=== PATIENT | male | born 1925 | race Caucasian/White ===

== ENCOUNTER 2017-08-05 11:52 | Emergency (ER) | payer OTHER, MEDICARE ==
[~2017-08-05] VITALS: Ht 165.1 cm; Wt 107.5 kg
[~2017-08-05 11:52] MED LIST: ALBU6.7H INH; CALC600T5 PO; DILT240C PO; FERR1TAB36 PO; FOSI20TA PO; GLIP5TAB8 PO; HYDR-3583 PO; METF500T PO; MULT-135 PO; OMEG100010 PO; OXYB10TA PO; OXYGENTANK NAS.CANULA; SIMV20TA PO; VITA10007 PO
[2017-08-05 12:19] VITALS: BP 145/63; PULSE 90; RESP 19; TEMP 97.9; O2SAT 95
[2017-08-05 12:25] VITALS: BP 145/63; PULSE 93; RESP 19; TEMP 97.9; O2SAT 96
[2017-08-05] MEDS ORDERED: FISH1000 PO (12:36)
[2017-08-05] MEDS ORDERED: ALBU.5I NEB (12:37)
--- NOTE | 2017-08-05 12:49 | PD ---
HPI Chief Complaint: Fall Time Seen by Provider: 12:49 Travel History International Travel<30 days: No Contact w/Intl Traveler<30days: No Traveled to known affect area: No PFSH Past Medical History Cancer: Yes (PROSTATE AND SKIN) Cardiovascular Problems: Yes Diabetes: Yes Patient Takes Glucophage: Yes Endocrine: Yes Gastrointestinal Disorders: Yes (HX OF BLEEDING ULCERS) Genitourinary: Yes (HX OF PROSTATE CA(TREATED WITH RADIOACTIVE SEEDS), urgency) Hepatitis: No Hiatal Hernia: No Hypertension: Yes (on medications) Immune Disorder: No Medical other: Yes (ELEVATED CHOLESTEROL, skin CA) Musculoskeletal: Yes (ARTHRITIS knees, L sciatic (past), carpal tunnel bilat hands) Neurologic: No Psychiatric: No Reproductive: No Respiratory: Yes Thyroid Disease: No Tetanus Vaccination: < 5 Years Influenza Vaccination: Yes Past Surgical History Abdominal Surgery: No AICD: No Cardiac Surgery: No Ear Surgery: No Endocrine Surgery: No Eye Surgery: Yes (previous right cataract ) Genitourinary Surgery: Yes (SEED IMPLANTS FOR PROSTATE CA) Joint Replacement: No Oral Surgery: Yes (TONSILLECTOMY) Pacemaker: No Thoracic Surgery: No Other Surgery: Yes Social History Alcohol Use: Yes (OCC) Tobacco Use: No Substance Use: No Allergies-Medications (Allergen,Severity, Reaction): Coded Allergies: No Known Allergies (Unverified Adverse Reaction, Unknown, 08/05/17) Reported Meds & Prescriptions Reported Meds & Active Scripts Active Macrobid (Nitrofurantoin Monohydrate Macrocrystals) 100 Mg Capsule 100 Mg PO BID 7 Days Reported Albuterol Neb (Albuterol Sulfate) 2.5 Mg/0.5 Ml Neb 2.5 Mg NEB Q6HR NEB Note: The Albuterol Sulfate Inhalation Solution is concentrated and must be diluted. Read complete instructions carefully before using. Fish Oil ([place]-3 Fatty Acids) 340 Mg-1,000 Mg Cap 1 Cap PO BID Oxygen tank (Oxygen) 1 Ea Tank 2 Liter KAMAR.CANULA HS PRN Oxygen Concentrator Portable Gaseous 2 L/min via Nasal Cannula Continuous For 99 months Simvastatin 20 Mg Tab 20 Mg PO HS [place] 3 1000 mg ([place]-3 Fatty Acids) 1 Cap Cap 1,000 Mg PO HS Metformin (Metformin HCl) 500 Mg Tab 500 Mg PO BID With meals Oxybutynin ER 24 HR (Oxybutynin Chloride) 10 Mg Tab 10 Mg PO HS Hydrocodone-Acetaminophen 10-325 mg Tab 1 Tab PO BID PRN Glipizide 5 Mg Tab 2.5 Mg PO BID Take 30 minutes before a meal Fosinopril (Fosinopril Sodium) 20 Mg Tab 20 Mg PO DAILY Diltiazem HCl ER (Diltiazem HCl Coated Beads) 240 Mg Cap 240 Mg PO DAILY Calcium (Calcium Carbonate) 600 Mg Tab 600 Mg PO DAILY Proventil Hfa 6.7 GM Inh (Albuterol Sulfate) 90 Mcg/Act Aer 2 Puff INH Q4-6H PRN Data Data Last Documented VS Vital Signs Date Time Temp Pulse Resp B/P (MAP) Pulse Ox O2 Delivery O2 Flow Rate FiO2 08/05/17 14:31 97 Room Air 08/05/17 14:31 08/05/17 12:25 97.9 93 19 Orders Orders Electrocardiogram (08/05/17 12:15) Complete Blood Count With Diff (08/05/17 14:24) Comprehensive Metabolic Panel (08/05/17 14:24) B-Type Natriuretic Peptide (08/05/17 14:24) Act Partial Throm Time (Ptt) (08/05/17 14:24) Prothrombin Time / Inr (Pt) (08/05/17 14:24) Ckmb (Isoenzyme) Profile (08/05/17 14:24) Troponin I (08/05/17 14:24) Urinalysis - C+S If Indicated (08/05/17 14:24) Iv Access Insert/Monitor (08/05/17 14:24) Ecg Monitoring (08/05/17 14:24) Oximetry (08/05/17 14:24) Oxygen Administration (08/05/17 14:24) Chest, Single Ap (08/05/17 14:24) Sodium Chloride 0.9% Flush (Ns Flush) (08/05/17 14:30) Elbow, Complete (4 Vws) (08/05/17 14:27) Urine Culture (08/05/17 14:00) CKMB (08/05/17 14:00) CKMB% (08/05/17 14:00) Ceftriaxone Inj (Rocephin Inj) (08/05/17 15:45) Ed Discharge Order (08/05/17 16:13) Labs Laboratory Tests Test 08/05/17 14:00 White Blood Count 12.7 TH/MM3 Red Blood Count 3.63 MIL/MM3 Hemoglobin 10.5 GM/DL Hematocrit 31.8 % Mean Corpuscular Volume 87.8 FL Mean Corpuscular Hemoglobin 28.9 PG Mean Corpuscular Hemoglobin Concent 33.0 % Red Cell Distribution Width 14.9 % Platelet Count 320 TH/MM3 Mean Platelet Volume 7.5 FL Neutrophils (%) (Auto) 67.2 % Lymphocytes (%) (Auto) 23.0 % Monocytes (%) (Auto) 9.3 % Eosinophils (%) (Auto) 0.3 % Basophils (%) (Auto) 0.2 % Neutrophils # (Auto) 8.5 TH/MM3 Lymphocytes # (Auto) 2.9 TH/MM3 Monocytes # (Auto) 1.2 TH/MM3 Eosinophils # (Auto) 0.0 TH/MM3 Basophils # (Auto) 0.0 TH/MM3 CBC Comment DIFF FINAL Differential Comment Prothrombin Time 10.3 SEC Prothromb Time International Ratio 1.0 RATIO Activated Partial Thromboplast Time 25.4 SEC Urine Color LIGHT-YELLOW Urine Turbidity HAZY Urine pH 6.5 Urine Specific [place] 1.010 Urine Protein 30 mg/dL Urine Glucose (UA) NEG mg/dL Urine Ketones NEG mg/dL Urine Occult Blood SMALL Urine Nitrite NEG Urine Bilirubin NEG Urine Urobilinogen LESS THAN 2.0 MG/DL Urine Leukocyte Esterase LARGE Urine RBC 8 /hpf Urine WBC 164 /hpf Urine Bacteria FEW /hpf Urine Mucus FEW /lpf Microscopic Urinalysis Comment CULTURE INDICATED Blood Urea Nitrogen 31 MG/DL Creatinine 1.16 MG/DL Random Glucose 163 MG/DL Total Protein 7.2 GM/DL Albumin 3.1 GM/DL Calcium Level 8.8 MG/DL Alkaline Phosphatase 86 U/L Aspartate Amino Transf (AST/SGOT) 40 U/L Alanine Aminotransferase (ALT/SGPT) 17 U/L Total Bilirubin 0.4 MG/DL Sodium Level 138 MEQ/L Potassium Level 4.8 MEQ/L Chloride Level 104 MEQ/L Carbon Dioxide Level 27.4 MEQ/L Anion Gap 7 MEQ/L Estimat Glomerular Filtration Rate 59 ML/MIN Total Creatine Kinase 341 U/L Creatine Kinase MB 4.0 NG/ML Creatine Kinase MB % 1.2 % Troponin I LESS THAN 0.02 NG/ML B-Type Natriuretic Peptide 26 PG/ML MDM Scripts Nitrofurantoin Monohydrate Macrocrystals (Macrobid) 100 Mg Capsule 100 MG PO BID for Infection for 7 Days, #14 CAP 0 Refills Prov: Hien Simon MD 08/05/17 Hien Simon MD Aug 05, 2017 12:49
--- NOTE | 2017-08-05 14:27 | PD ---
HPI Chief Complaint: Fall Time Seen by Provider: 14:07 Travel History International Travel<30 days: No Contact w/Intl Traveler<30days: No Traveled to known affect area: No History of Present Illness HPI 89-year-old male with PMH of DM, neuropathy, HTN, asbestosis, GI bleed, prostate CA presents to the ED via EMS after 2 mechanical falls at home today. The first fall occurred this morning as he was transferring from wheelchair to the walker. States that he lost his balance and fell to the carpeted floor, landing on his left elbow. He states that the fire department came to the house and helped him get off the floor. He states that after breakfast he was getting into the shower, became short of breath, lost his balance and fell to the tile floor. He denies hitting his head or loss of consciousness with either fall. He states that he has noticed increasing weakness, especially dyspnea on exertion. On presentation he denies headaches, dizziness, neck pain , back pain, fever, chills, chest pain, palpitations, abdominal pain, nausea, vomiting. He endorses a bowel movement every few days. Denies melena, hematochezia. Endorses urinary incontinence. Denies dysuria, hematuria. He endorses chronic shoulder pain, denies any musculoskeletal pain of the extremities. He treats his shortness of breath at home with nebulizers and O2 as needed. He is followed by the [facility] Past Medical History Cancer: Yes (PROSTATE AND SKIN) Cardiovascular Problems: Yes Diabetes: Yes Patient Takes Glucophage: Yes Endocrine: Yes Gastrointestinal Disorders: Yes (HX OF BLEEDING ULCERS) Genitourinary: Yes (HX OF PROSTATE CA(TREATED WITH RADIOACTIVE SEEDS), urgency) Hepatitis: No Hiatal Hernia: No Hypertension: Yes (on medications) Immune Disorder: No Medical other: Yes (ELEVATED CHOLESTEROL, skin CA) Musculoskeletal: Yes (ARTHRITIS knees, L sciatic (past), carpal tunnel bilat hands) Neurologic: No Psychiatric: No Reproductive: No Respiratory: Yes Thyroid Disease: No Tetanus Vaccination: < 5 Years Influenza Vaccination: Yes Past Surgical History Abdominal Surgery: No AICD: No Cardiac Surgery: No Ear Surgery: No Endocrine Surgery: No Eye Surgery: Yes (previous right cataract ) Genitourinary Surgery: Yes (SEED IMPLANTS FOR PROSTATE CA) Joint Replacement: No Oral Surgery: Yes (TONSILLECTOMY) Pacemaker: No Thoracic Surgery: No Other Surgery: Yes Social History Alcohol Use: Yes (OCC) Tobacco Use: No Substance Use: No Allergies-Medications (Allergen,Severity, Reaction): Coded Allergies: No Known Allergies (Unverified Adverse Reaction, Unknown, 08/05/17) Reported Meds & Prescriptions Reported Meds & Active Scripts Active Macrobid (Nitrofurantoin Monohydrate Macrocrystals) 100 Mg Capsule 100 Mg PO BID 7 Days Reported Albuterol Neb (Albuterol Sulfate) 2.5 Mg/0.5 Ml Neb 2.5 Mg NEB Q6HR NEB Note: The Albuterol Sulfate Inhalation Solution is concentrated and must be diluted. Read complete instructions carefully before using. Fish Oil ([place]-3 Fatty Acids) 340 Mg-1,000 Mg Cap 1 Cap PO BID Oxygen tank (Oxygen) 1 Ea Tank 2 Liter KAMAR.CANULA HS PRN Oxygen Concentrator Portable Gaseous 2 L/min via Nasal Cannula Continuous For 99 months Simvastatin 20 Mg Tab 20 Mg PO HS [place] 3 1000 mg ([place]-3 Fatty Acids) 1 Cap Cap 1,000 Mg PO HS Metformin (Metformin HCl) 500 Mg Tab 500 Mg PO BID With meals Oxybutynin ER 24 HR (Oxybutynin Chloride) 10 Mg Tab 10 Mg PO HS Hydrocodone-Acetaminophen 10-325 mg Tab 1 Tab PO BID PRN Glipizide 5 Mg Tab 2.5 Mg PO BID Take 30 minutes before a meal Fosinopril (Fosinopril Sodium) 20 Mg Tab 20 Mg PO DAILY Diltiazem HCl ER (Diltiazem HCl Coated Beads) 240 Mg Cap 240 Mg PO DAILY Calcium (Calcium Carbonate) 600 Mg Tab 600 Mg PO DAILY Proventil Hfa 6.7 GM Inh (Albuterol Sulfate) 90 Mcg/Act Aer 2 Puff INH Q4-6H PRN Review of Systems Except as stated in HPI: all other systems reviewed are Neg Physical Exam Narrative GENERAL: Well-nourished, well-developed white male in no acute distress. Sitting up in the stretcher. SKIN: Warm and dry. Thorough evaluation reveals no edema, ecchymosis, abrasion , or laceration of the skin. HEAD: Normocephalic. Atraumatic. No raccoon eyes or norwood sign. No tenderness to palpation of the skull. No bony step-offs. No malocclusion of the teeth. EYES: No scleral icterus. No injection or drainage. PERRLA. EOMI. ENT: Hearing aid in place in the right external ear canal. Nasal mucosa is moist. Oropharynx without erythema, edema or exudate. NECK: Supple, trachea midline. No JVD or lymphadenopathy. No midline tenderness to palpation. Patient retains full, active, painless range of motion of the neck. CARDIOVASCULAR: Regular rate and rhythm without murmurs, gallops, or rubs. 2+ DP and radial pulses bilaterally. RESPIRATORY: Breath sounds clear and equal bilaterally. No accessory muscle use. GASTROINTESTINAL: Abdomen soft, non-tender, nondistended. + Bowel sounds MUSCULOSKELETAL: No cyanosis. 1+ edema to the midshin bilaterally. Tender to palpation of the radial head, worsened with pronation and supination. No other tenderness to palpation or limitations to range of motion of the joints of the upper and lower extremities bilaterally. NEUROLOGICAL: Awake and alert. Cranial nerves II through XII intact. Motor and sensory grossly within normal limits. 5/5 muscle strength in all muscle groups. Normal speech. BACK: Nontender without obvious deformity. No CVA tenderness. No midline tenderness. Data Data Last Documented VS Vital Signs Date Time Temp Pulse Resp B/P (MAP) Pulse Ox O2 Delivery O2 Flow Rate FiO2 08/05/17 14:31 97 Room Air 08/05/17 14:31 08/05/17 12:25 97.9 93 19 Orders Orders Electrocardiogram (08/05/17 12:15) Complete Blood Count With Diff (08/05/17 14:24) Comprehensive Metabolic Panel (08/05/17 14:24) B-Type Natriuretic Peptide (08/05/17 14:24) Act Partial Throm Time (Ptt) (08/05/17 14:24) Prothrombin Time / Inr (Pt) (08/05/17 14:24) Ckmb (Isoenzyme) Profile (08/05/17 14:24) Troponin I (08/05/17 14:24) Urinalysis - C+S If Indicated (08/05/17 14:24) Iv Access Insert/Monitor (08/05/17 14:24) Ecg Monitoring (08/05/17 14:24) Oximetry (08/05/17 14:24) Oxygen Administration (08/05/17 14:24) Chest, Single Ap (08/05/17 14:24) Sodium Chloride 0.9% Flush (Ns Flush) (08/05/17 14:30) Elbow, Complete (4 Vws) (08/05/17 14:27) Urine Culture (08/05/17 14:00) CKMB (08/05/17 14:00) CKMB% (08/05/17 14:00) Ceftriaxone Inj (Rocephin Inj) (08/05/17 15:45) Ed Discharge Order (08/05/17 16:13) Labs Laboratory Tests Test 08/05/17 14:00 White Blood Count 12.7 TH/MM3 Red Blood Count 3.63 MIL/MM3 Hemoglobin 10.5 GM/DL Hematocrit 31.8 % Mean Corpuscular Volume 87.8 FL Mean Corpuscular Hemoglobin 28.9 PG Mean Corpuscular Hemoglobin Concent 33.0 % Red Cell Distribution Width 14.9 % Platelet Count 320 TH/MM3 Mean Platelet Volume 7.5 FL Neutrophils (%) (Auto) 67.2 % Lymphocytes (%) (Auto) 23.0 % Monocytes (%) (Auto) 9.3 % Eosinophils (%) (Auto) 0.3 % Basophils (%) (Auto) 0.2 % Neutrophils # (Auto) 8.5 TH/MM3 Lymphocytes # (Auto) 2.9 TH/MM3 Monocytes # (Auto) 1.2 TH/MM3 Eosinophils # (Auto) 0.0 TH/MM3 Basophils # (Auto) 0.0 TH/MM3 CBC Comment DIFF FINAL Differential Comment Prothrombin Time 10.3 SEC Prothromb Time International Ratio 1.0 RATIO Activated Partial Thromboplast Time 25.4 SEC Urine Color LIGHT-YELLOW Urine Turbidity HAZY Urine pH 6.5 Urine Specific [place] 1.010 Urine Protein 30 mg/dL Urine Glucose (UA) NEG mg/dL Urine Ketones NEG mg/dL Urine Occult Blood SMALL Urine Nitrite NEG Urine Bilirubin NEG Urine Urobilinogen LESS THAN 2.0 MG/DL Urine Leukocyte Esterase LARGE Urine RBC 8 /hpf Urine WBC 164 /hpf Urine Bacteria FEW /hpf Urine Mucus FEW /lpf Microscopic Urinalysis Comment CULTURE INDICATED Blood Urea Nitrogen 31 MG/DL Creatinine 1.16 MG/DL Random Glucose 163 MG/DL Total Protein 7.2 GM/DL Albumin 3.1 GM/DL Calcium Level 8.8 MG/DL Alkaline Phosphatase 86 U/L Aspartate Amino Transf (AST/SGOT) 40 U/L Alanine Aminotransferase (ALT/SGPT) 17 U/L Total Bilirubin 0.4 MG/DL Sodium Level 138 MEQ/L Potassium Level 4.8 MEQ/L Chloride Level 104 MEQ/L Carbon Dioxide Level 27.4 MEQ/L Anion Gap 7 MEQ/L Estimat Glomerular Filtration Rate 59 ML/MIN Total Creatine Kinase 341 U/L Creatine Kinase MB 4.0 NG/ML Creatine Kinase MB % 1.2 % Troponin I LESS THAN 0.02 NG/ML B-Type Natriuretic Peptide 26 PG/ML [facility] Medical Decision Making Medical Screen Exam Complete: Yes Emergency Medical Condition: Yes Differential Diagnosis CHF exacerbation versus anemia versus mechanical fall versus metabolic derangement versus other Narrative Course 89-year-old male with PMH of DM, neuropathy, HTN, asbestosis, GI bleed, prostate CA presents to the ED via EMS after 2 mechanical falls at home today. He was getting into the shower, became short of breath, lost his balance and fell to the tile floor. He denies hitting his head or LOC with either fall. He states that he has noticed increasing weakness, especially dyspnea on exertion. Denies melena, hematochezia. Endorses urinary incontinence. Denies dysuria, hematuria. He treats his shortness of breath at home with nebulizers and O2 as needed. [facility] Patient is afebrile and hypertensive on presentation. Physical exam reveals a pleasant, alert white male in no acute distress. He has some tenderness to palpation of the left elbow but the exam is otherwise unremarkable. Given the reported shortness of breath workup was initiated. EKG: Heart rate 96, sinus rhythm with sinus arrhythmia. AR interval 149, QRS 114, QTC 400. Borderline LAD. Incomplete RBBB. No acute ST changes. Reviewed by Dr. Simon. CXR: Nodule foci bilaterally could be calcified pleural plaques which could be seen with asbestosis exposure. Slight elevation of left hemidiaphragm. Cardiac enzymes negative 1 WBC 12.7. Hemoglobin 10.5. INR 1.0 BUN 31, creatinine 1.16. BNP 26 UA hazy, small occult blood, large leukocyte esterase, 164 WBCs, few bacteria, few mucus. Culture indicated. Left elbow x-ray: Soft tissue swelling without fracture. Patient was administered a gram of Rocephin IV. I discussed the results of the workup. He reports chronic anemia and intermittent B12 injections. Last colonoscopy greater than 10 years ago. He is discharged with 7 day course of Macrobid twice daily. He is instructed to call the [place] tomorrow for outpatient follow-up with the community planner. We discussed reasons to return to the ED. The patient and his family indicated understanding of the discharge instructions are agreeable to the care plan. The patient is stable and discharged home. HemaPrompt Point of Care Internal Pos. & Neg. Controls: Passed Fecal Specimen Occult Blood: Positive (Weakly positive) Diagnosis Primary Impression: Urinary tract infection Qualified Codes: N39.0 - Urinary tract infection, site not specified Additional Impression: Fall from standing Qualified Codes: W19.XXXA - Unspecified fall, initial encounter Referrals: [facility] [place] Patient Instructions: General Instructions, Urinary Traction Infection in Older Adults (ED) Additional Instructions: Rest, hydrate. Take every antibiotic pill until they are all gone. Follow-up with the [place] clinic and community planner this week as discussed. Return to the ED for any urgent or emergent medical condition. Med/Other Pt SpecificInfo: Prescription(s) given Scripts Nitrofurantoin Monohydrate Macrocrystals (Macrobid) 100 Mg Capsule 100 MG PO BID for Infection for 7 Days, #14 CAP 0 Refills Prov: Hien Simon MD 08/05/17 Disposition: 01 DISCHARGE HOME Condition: Stable Tracey Morgan Aug 05, 2017 14:27
[2017-08-05] MEDS ORDERED: SODIUM CHLORIDE 0.9% FLUSH 10 ML FLUSH IVF PRN (14:30)
[2017-08-05 14:31] VITALS: O2SAT 97
--- NOTE | 2017-08-05 14:59 | RADRPT ---
EXAM DATE/TIME: 08/05/2017 14:38 [facility] COMPARISON: No previous studies available for comparison. INDICATIONS : Fell. MEDICAL HISTORY : none known SURGICAL HISTORY : none known ENCOUNTER: Initial ACUITY: 1 day PAIN SCORE: 0/10 LOCATION: Bilateral chest FINDINGS: A single view of the chest demonstrates bilateral nodular foci could be calcified plaques. Slight mina vation left hemidiaphragm. No consolidation. The cardiomediastinal contours are unremarkable. Osseou s structures are intact. CONCLUSION: 1. Nodular foci bilaterally could be calcified pleural plaques which can be seen with asbestosis expo sure. 2. Slight elevation left hemidiaphragm. Mg Morris MD on August 05, 2017 at 14:55 Board Certified Radiologist. This report was verified electronically.
--- NOTE | 2017-08-05 15:00 | RADRPT ---
EXAM DATE/TIME: 08/05/2017 14:42 [facility] COMPARISON: No previous studies available for comparison. INDICATIONS : Fell. MEDICAL HISTORY : None. SURGICAL HISTORY : None. ENCOUNTER: Initial ACUITY: 1 day PAIN SCORE: 8/10 LOCATION: Left elbow FINDINGS: Multiple view examination of the left elbow demonstrates no soft tissue swelling, joint effusion, or fracture. The osseous structures are in normal alignment. Bony mineralization is under mineralized. Vascular calcifications. CONCLUSION: Soft tissue swelling without fracture. Mg Morris MD on August 05, 2017 at 14:56 Board Certified Radiologist. This report was verified electronically.
[2017-08-05 15:05] LABS: AUTOMATED NEUTROPHIL # 8.5 TH/MM3 (1.8-7.7); BASOPHIL % 0.2 % (0.0-2.0); EOSINOPHIL % 0.3 % (0.0-4.0); HEMATOCRIT 31.8 % (39.0-51.0); HEMOGLOBIN 10.5 GM/DL (13.0-17.0); LYMPHOCYTE # 2.9 TH/MM3 (1.0-4.8); MEAN CELL VOLUME 87.8 FL (80.0-100.0); MEAN CORPUSCULAR HEMOGLOBIN 28.9 PG (27.0-34.0); MEAN PLATELET VOLUME 7.5 FL (7.0-11.0); MONO % 9.3 % (0.0-8.0); MONOCYTE # 1.2 TH/MM3 (0-0.9); NEUT % 67.2 % (16.0-70.0); PLATELET COUNT 320 TH/MM3 (150-450); RED BLOOD COUNT 3.63 MIL/MM3 (4.50-5.90); RED CELL DISTRIBUTION WIDTH 14.9 % (11.6-17.2); WHITE BLOOD COUNT 12.7 TH/MM3 (4.0-11.0)
--- NOTE | 2017-08-05 15:12 | EKG ---
Date Performed: 08/05/2017 Time Performed: 12:15:11 PTAGE: 89 years EKG: Sinus rhythm WITH SINUS ARRHYTHMIA BORDERLINE LEFT AXIS DEVIATION Nonspecific intraventricular conduction delay N ONSPECIFIC T-WAVE ABNORMALITY BORDERLINE ECG Compared to prior electrocardiogram, Nonspecific intrave ntricular conduction delay is now present DOCTOR: Abdulaziz Soliman Interpretating Date/Time 08/05/2017 15:11:33
[2017-08-05 15:15] LABS: BACTERIA, URINE FEW /hpf; BILIRUBIN, URINE NEG (NEG); BLOOD, URINE SMALL (NEG); GLUCOSE,URINE NEG (NEG); KETONE, URINE NEG (NEG); MUCUS URINE FEW /lpf (OCC); NITRITE,URINE NEG (NEG); PH, URINE 6.5 (5.0-8.5); URINE COLOR LIGHT-YELLOW (YELLW/STRAW); URINE LEUKOCYTE ESTERASE LARGE (NEG)
[2017-08-05 15:33] LABS: PROTHROMBIN TIME - PATIENT 10.3 SEC (9.8-11.6)
[2017-08-05 15:34] LABS: ALBUMIN 3.1 GM/DL (3.4-5.0); ALKALINE PHOSPHATASE 86 U/L (45-117); ALT (GPT) 17 U/L (12-78); AST (GOT) 40 U/L (15-37); BICARBONATE 27.4 MEQ/L (21.0-32.0); BLOOD UREA NITROGEN 31 MG/DL (7-18); CALCIUM 8.8 MG/DL (8.5-10.1); CHLORIDE 104 MEQ/L (98-107); CREATININE 1.16 MG/DL (0.60-1.30); GLOMERULAR FILTRATION RATE 59 ML/MIN (>89); GLUCOSE,RANDOM 163 MG/DL (74-106); SODIUM (NA) 138 MEQ/L (136-145); TOTAL BILIRUBIN ADULT 0.4 MG/DL (0.2-1.0); TOTAL PROTEIN 7.2 GM/DL (6.4-8.2); TROPONIN I LESS THAN 0.02 NG/ML (0.02-0.05)
[2017-08-05] MEDS ORDERED: cefTRIAXone INJ 1,000 MG in SODIUM CHLORIDE 0.9% INJ 100 ML IV ONE (15:45)
[2017-08-05] MEDS ORDERED: MACR100C2 PO (16:15)
== END 2017-08-05 18:35 | disposition home or self-care (01) ==
LOC: NEPE 11:52
DX: N39.0 Urinary tract infection, site not specified (principal); R06.02 Shortness of breath; E11.40 Type 2 diabetes mellitus with diabetic neuropathy, unspecified; I10 Essential (primary) hypertension; R94.31 Abnormal electrocardiogram [ECG] [EKG]; G89.29 Other chronic pain; M25.519 Pain in unspecified shoulder; B96.89 Other specified bacterial agents as the cause of diseases classified elsewhere; W05.0XXA Fall from non-moving wheelchair, initial encounter; W01.0XXA Fall on same level from slipping, tripping and stumbling without subsequent striking against object, initial encounter; Y92.002 Bathroom of unspecified non-institutional (private) residence as the place of occurrence of the external cause; R32 Unspecified urinary incontinence
CPT/HCPCS: 71045; 73080; 80053; 81001; 82550; 82552; 83880; 84484; 85025; 85610; 85730; 87077; 87086; 87186; 93005; 96374; 99285; J0696

== ENCOUNTER 2017-08-18 12:02 | Inpatient (IN) | payer MEDICARE, OTHER ==
[~2017-08-18] VITALS: Ht 165.1 cm; Wt 103.7 kg
[2017-08-18] VITALS (7 sets, daily range): BP systolic 113–174; BP diastolic 53–74; PULSE 72–78; RESP 18–24; TEMP 97.9–98.2; O2SAT 95–97
[~2017-08-18 12:02] MED LIST changes: +ALBU.5I NEB; -FERR1TAB36 PO; +FISH1000 PO; +MACR100C2 PO; -MULT-135 PO; -VITA10007 PO
[2017-08-18 12:50] LABS: BACTERIA, URINE OCC /hpf; BILIRUBIN, URINE NEG (NEG); BLOOD, URINE NEG (NEG); GLUCOSE,URINE NEG (NEG); KETONE, URINE NEG (NEG); MUCUS URINE FEW /lpf (OCC); NITRITE,URINE NEG (NEG); RENAL EPITHELIAL CELLS 1 /hpf; SQUAMOUS EPITHELIAL CELL URINE 1 /hpf (0-5); URINE COLOR YELLOW (YELLW/STRAW); URINE LEUKOCYTE ESTERASE LARGE (NEG); WHITE BLOOD CELL CLUMPS RARE
--- NOTE | 2017-08-18 13:00 | PD ---
HPI Chief Complaint: General Weakness Time Seen by Provider: 12:49 Travel History International Travel<30 days: No Contact w/Intl Traveler<30days: No Traveled to known affect area: No History of Present Illness HPI The patient is a 89-year-old male who presents to the emergency department for generalized weakness and inability to ambulate. The patient was recently hospitalized for UTI, declined custodial facility placement and subsequently went home. However, the patient lives with his girlfriend who is in her 90s, she is ambulatory, but unable to assist the patient. The patient is unable to get up out of the recliner to the bathroom to urinate. He notes increasing swelling to lower extremities, increased lethargy, now states he may need custodial facility placement. The patient apparently called his primary physician, Dr. Alvarez gotti, who referred the patient to the emergency department for admission and subsequent placement in a custodial facility. The patient denies any chest pain or shortness of breath. He does complain of generalized weakness and lower extremity edema. Symptoms are moderate. PFSH Past Medical History Cancer: Yes (PROSTATE AND SKIN) Cardiovascular Problems: Yes Diabetes: Yes Endocrine: Yes Gastrointestinal Disorders: Yes (HX OF BLEEDING ULCERS) Genitourinary: Yes (HX OF PROSTATE CA(TREATED WITH RADIOACTIVE SEEDS), urgency) Hepatitis: No Hiatal Hernia: No Hypertension: Yes (on medications) Immune Disorder: No Musculoskeletal: Yes (ARTHRITIS knees, L sciatic (past), carpal tunnel bilat hands) Neurologic: No Psychiatric: No Reproductive: No Respiratory: Yes Thyroid Disease: No Past Surgical History Abdominal Surgery: No AICD: No Cardiac Surgery: No Ear Surgery: No Endocrine Surgery: No Eye Surgery: Yes (previous right cataract ) Genitourinary Surgery: Yes (SEED IMPLANTS FOR PROSTATE CA) Joint Replacement: No Oral Surgery: Yes (TONSILLECTOMY) Pacemaker: No Thoracic Surgery: No Other Surgery: Yes Social History Alcohol Use: Yes (OCC) Tobacco Use: No Substance Use: No Allergies-Medications (Allergen,Severity, Reaction): Coded Allergies: No Known Allergies (Unverified Adverse Reaction, Unknown, 08/18/17) Reported Meds & Prescriptions Reported Meds & Active Scripts Active Reported Furosemide 40 Mg Tab 40 Mg PO DAILY Albuterol Neb (Albuterol Sulfate) 2.5 Mg/0.5 Ml Neb 2.5 Mg NEB Q6HR NEB Note: The Albuterol Sulfate Inhalation Solution is concentrated and must be diluted. Read complete instructions carefully before using. Oxygen tank (Oxygen) 1 Ea Tank 2 Liter KAMAR.CANULA HS PRN Oxygen Concentrator Portable Gaseous 2 L/min via Nasal Cannula Continuous For 99 months Simvastatin 20 Mg Tab 20 Mg PO HS [place] 3 1000 mg (Friedens-3 Fatty Acids) 1 Cap Cap 1,000 Mg PO HS Metformin (Metformin HCl) 500 Mg Tab 500 Mg PO BID With meals Oxybutynin ER 24 HR (Oxybutynin Chloride) 10 Mg Tab 10 Mg PO HS Hydrocodone-Acetaminophen 10-325 mg Tab 1 Tab PO BID PRN Glipizide 5 Mg Tab 2.5 Mg PO BID Take 30 minutes before a meal Fosinopril (Fosinopril Sodium) 20 Mg Tab 20 Mg PO DAILY Diltiazem HCl ER (Diltiazem HCl Coated Beads) 240 Mg Cap 240 Mg PO DAILY Calcium (Calcium Carbonate) 600 Mg Tab 600 Mg PO DAILY Proventil Hfa 6.7 GM Inh (Albuterol Sulfate) 90 Mcg/Act Aer 2 Puff INH Q4-6H PRN Review of Systems Except as stated in HPI: all other systems reviewed are Neg General / Constitutional: No: Fever Cardiovascular: No: Chest Pain or Discomfort Respiratory: No: Shortness of Breath Gastrointestinal: No: Nausea, Vomiting, Abdominal Pain Genitourinary: Positive: Other (recurrent urinary tract infections) Musculoskeletal: Positive: Weakness, Edema Neurologic: Positive: Weakness Physical Exam Narrative GENERAL: Awake, alert, pleasant 89-year-old male who appears his stated age and is in no acute respiratory distress. SKIN: Focused skin assessment warm/dry. HEAD: Atraumatic. Normocephalic. EYES: No injection or drainage. ENT: No nasal bleeding or discharge. Upper dentures in place. NECK: Trachea midline. No JVD. CARDIOVASCULAR: Regular rate and rhythm. No murmur appreciated. RESPIRATORY: No accessory muscle use. Clear to auscultation. Breath sounds equal bilaterally. GASTROINTESTINAL: Abdomen soft, obese, no rebound tenderness. Patient was wearing shorts that were soaked in urine. MUSCULOSKELETAL: Bilateral lower extremity pitting edema from the knees inferiorly. NEUROLOGICAL: Awake and alert. No obvious cranial nerve deficits. Motor grossly within normal limits. Normal speech. Nonfocal. PSYCHIATRIC: Appropriate mood and affect; insight and judgment normal. Data Data Last Documented VS Vital Signs Date Time Temp Pulse Resp B/P (MAP) Pulse Ox O2 Delivery O2 Flow Rate FiO2 08/18/17 14:32 75 24 171/71 (104) 95 Room Air 08/18/17 12:17 97.9 Orders Orders Urinalysis - C+S If Indicated (08/18/17 12:20) Complete Blood Count With Diff (08/18/17 12:20) Electrocardiogram (08/18/17 ) Comprehensive Metabolic Panel (08/18/17 12:49) Troponin I (08/18/17 12:49) Creatine Kinase (Cpk) (08/18/17 12:49) Chest, Single Ap (08/18/17 ) Lactic Acid (08/18/17 12:49) Blood Culture (08/18/17 12:49) Urine Culture (08/18/17 12:25) Ceftriaxone Inj (Rocephin Inj) (08/18/17 13:30) Admit To Inpatient (08/18/17 ) Code Status (08/18/17 15:07) Vital Signs (Adult) Q4H (08/18/17 15:07) Activity Oob With Assistance (08/18/17 15:07) Sodium Chloride 0.9% Flush (Ns Flush) (08/18/17 15:15) Sodium Chloride 0.9% Flush (Ns Flush) (08/18/17 21:00) Acetaminophen (Tylenol) (08/18/17 15:15) Ondansetron Inj (Zofran Inj) (08/18/17 15:15) Basic Metabolic Panel (Bmp) (08/19/17 06:00) Complete Blood Count With Diff (08/19/17 06:00) Chest, Pa & Lat (08/19/17 08:00) Electrocardiogram (08/18/17 15:07) Resp Oxygen Kamar C Titrat 1-4 L (08/18/17 ) Pt Request For Service (08/18/17 15:07) Scd Bilateral/Knee High RUDY.BID (08/18/17 15:07) Naloxone Inj (Narcan Inj) (08/18/17 15:15) Magnesium Hydroxide Liq (Milk Of Magnesi (08/18/17 15:15) Inpatient Certification (08/18/17 ) Diet 1999 Ada Cons Carb (08/18/17 Dinner) Insulin Aspart Supplemtl Scale (Novolog (08/18/17 17:00) Diltiazem Cd (Cardizem Cd) (08/19/17 09:00) Lisinopril (Prinivil) (08/19/17 09:00) Furosemide (Lasix) (08/19/17 09:00) Metformin (Glucophage) (08/18/17 21:00) Tolterodine La (Detrol La) (08/18/17 21:00) Pravastatin (Pravachol) (08/18/17 21:00) Acetamin-Hydrocod 325-5 Mg ([place] 5-325 (08/18/17 15:15) Ceftriaxone Inj (Rocephin Inj) (08/19/17 08:00) Admit Order (Ed Use Only) (08/18/17 15:19) Labs Laboratory Tests Test 08/18/17 12:25 08/18/17 13:55 Urine Color YELLOW Urine Turbidity HAZY Urine pH 6.0 Urine Specific [place] 1.012 Urine Protein 30 mg/dL Urine Glucose (UA) NEG mg/dL Urine Ketones NEG mg/dL Urine Occult Blood NEG Urine Nitrite NEG Urine Bilirubin NEG Urine Urobilinogen LESS THAN 2.0 MG/DL Urine Leukocyte Esterase LARGE Urine RBC 1 /hpf Urine WBC 57 /hpf Urine WBC Clumps RARE Urine Squamous Epithelial Cells 1 /hpf Urine Renal Epithelial Cells 1 /hpf Urine Bacteria OCC /hpf Urine Mucus FEW /lpf Urine Yeast (Budding) OCC Microscopic Urinalysis Comment CULTURE INDICATED Blood Urea Nitrogen 41 MG/DL Creatinine 1.34 MG/DL Random Glucose 113 MG/DL Total Protein 6.7 GM/DL Albumin 3.1 GM/DL Calcium Level 8.7 MG/DL Alkaline Phosphatase 79 U/L Aspartate Amino Transf (AST/SGOT) 16 U/L Alanine Aminotransferase (ALT/SGPT) 14 U/L Total Bilirubin 0.4 MG/DL Sodium Level 137 MEQ/L Potassium Level 4.4 MEQ/L Chloride Level 104 MEQ/L Carbon Dioxide Level 23.9 MEQ/L Anion Gap 9 MEQ/L Estimat Glomerular Filtration Rate 50 ML/MIN Total Creatine Kinase 103 U/L Troponin I LESS THAN 0.02 NG/ML White Blood Count 13.4 TH/MM3 Red Blood Count 3.33 MIL/MM3 Hemoglobin 9.5 GM/DL Hematocrit 29.2 % Mean Corpuscular Volume 87.5 FL Mean Corpuscular Hemoglobin 28.6 PG Mean Corpuscular Hemoglobin Concent 32.7 % Red Cell Distribution Width 14.8 % Platelet Count 349 TH/MM3 Mean Platelet Volume 7.8 FL Neutrophils (%) (Auto) 65.6 % Lymphocytes (%) (Auto) 25.1 % Monocytes (%) (Auto) 7.9 % Eosinophils (%) (Auto) 0.8 % Basophils (%) (Auto) 0.6 % Neutrophils # (Auto) 8.8 TH/MM3 Lymphocytes # (Auto) 3.4 TH/MM3 Monocytes # (Auto) 1.1 TH/MM3 Eosinophils # (Auto) 0.1 TH/MM3 Basophils # (Auto) 0.1 TH/MM3 CBC Comment DIFF FINAL Differential Comment Lactic Acid Level 0.7 mmol/L [facility] Medical Decision Making Medical Screen Exam Complete: Yes Emergency Medical Condition: Yes Medical Record Reviewed: Yes Interpretation(s) EKG reveals sinus rhythm with sinus arrhythmia. Nonspecific T-wave changes, inverted T waves noted in aVL. Laboratory Tests Test 08/18/17 12:25 08/18/17 13:55 Urine Color YELLOW Urine Turbidity HAZY Urine pH 6.0 Urine Specific [place] 1.012 Urine Protein 30 mg/dL Urine Glucose (UA) NEG mg/dL Urine Ketones NEG mg/dL Urine Occult Blood NEG Urine Nitrite NEG Urine Bilirubin NEG Urine Urobilinogen LESS THAN 2.0 MG/DL Urine Leukocyte Esterase LARGE Urine RBC 1 /hpf Urine WBC 57 /hpf Urine WBC Clumps RARE Urine Squamous Epithelial Cells 1 /hpf Urine Renal Epithelial Cells 1 /hpf Urine Bacteria OCC /hpf Urine Mucus FEW /lpf Urine Yeast (Budding) OCC Microscopic Urinalysis Comment CULTURE INDICATED Blood Urea Nitrogen 41 MG/DL Creatinine 1.34 MG/DL Random Glucose 113 MG/DL Total Protein 6.7 GM/DL Albumin 3.1 GM/DL Calcium Level 8.7 MG/DL Alkaline Phosphatase 79 U/L Aspartate Amino Transf (AST/SGOT) 16 U/L Alanine Aminotransferase (ALT/SGPT) 14 U/L Total Bilirubin 0.4 MG/DL Sodium Level 137 MEQ/L Potassium Level 4.4 MEQ/L Chloride Level 104 MEQ/L Carbon Dioxide Level 23.9 MEQ/L Anion Gap 9 MEQ/L Estimat Glomerular Filtration Rate 50 ML/MIN Total Creatine Kinase 103 U/L Troponin I LESS THAN 0.02 NG/ML White Blood Count 13.4 TH/MM3 Red Blood Count 3.33 MIL/MM3 Hemoglobin 9.5 GM/DL Hematocrit 29.2 % Mean Corpuscular Volume 87.5 FL Mean Corpuscular Hemoglobin 28.6 PG Mean Corpuscular Hemoglobin Concent 32.7 % Red Cell Distribution Width 14.8 % Platelet Count 349 TH/MM3 Mean Platelet Volume 7.8 FL Neutrophils (%) (Auto) 65.6 % Lymphocytes (%) (Auto) 25.1 % Monocytes (%) (Auto) 7.9 % Eosinophils (%) (Auto) 0.8 % Basophils (%) (Auto) 0.6 % Neutrophils # (Auto) 8.8 TH/MM3 Lymphocytes # (Auto) 3.4 TH/MM3 Monocytes # (Auto) 1.1 TH/MM3 Eosinophils # (Auto) 0.1 TH/MM3 Basophils # (Auto) 0.1 TH/MM3 CBC Comment DIFF FINAL Differential Comment Last Impressions Chest X-Ray 08/18/17 0000 Signed Impressions: Service Date/Time: Friday, August 18, 2017 12:59 - CONCLUSION: 1. Cardiomegaly. 2. Bibasilar consolidations. Rai Henderson Jr., MD Differential Diagnosis Differential diagnosis includes UTI, hyponatremia, hypoalbuminemia, debility, inability to care for self, pneumonia, congestive heart failure, vascular insufficiency. Narrative Course IV was established, labs are drawn and sent, and the patient was placed on cardiac telemetry monitoring and continuous pulse oximetry monitoring. EKG was ordered and interpreted. Chest x-rays obtained. UA was sent to lab. Chest x- ray reveals bibasilar consolidations. UA is positive, I reviewed the last micro -results, grew atypical bacteria is resistant to Cipro. Therefore, patient was administered Rocephin 1 g intravenously. Patient's white count is elevated at 13.4. The patient is unable to take care of himself at home, will require admission, IV antibiotics, case management for placement. The patient's primary physician did send the patient to the hospital for admission and subsequent custodial facility placement. The patient has [facility], therefore, the on-call [facility] physician was paged for admission. Physician Communication Physician Communication The on-call [facility] physician was paged for admission. I discussed the patient with Dr. Flores who agrees with admission. Diagnosis Primary Impression: UTI (urinary tract infection) Qualified Codes: N30.00 - Acute cystitis without hematuria Additional Impressions: Generalized weakness Dependent edema Admitting Information Admitting Physician Requests: Admit Condition: Stable Balaji Moreland MD Aug 18, 2017 13:00
[2017-08-18] MEDS ORDERED: cefTRIAXone INJ 1,000 MG in SODIUM CHLORIDE 0.9% INJ 100 ML IV ONE (13:30)
[2017-08-18] MEDS ORDERED: FURO1TAB62 PO (13:38)
[2017-08-18] MEDS ORDERED: FURO40TA PO (13:47)
[2017-08-18 13:48] LABS: ALBUMIN 3.1 GM/DL (3.4-5.0); AST (GOT) 16 U/L (15-37); BICARBONATE 23.9 MEQ/L (21.0-32.0); BLOOD UREA NITROGEN 41 MG/DL (7-18); CALCIUM 8.7 MG/DL (8.5-10.1); CHLORIDE 104 MEQ/L (98-107); CREATININE 1.34 MG/DL (0.60-1.30); GLOMERULAR FILTRATION RATE 50 ML/MIN (>89); GLUCOSE,RANDOM 113 MG/DL (74-106); SODIUM (NA) 137 MEQ/L (136-145)
[2017-08-18 13:49] LABS: ALT (GPT) 14 U/L (12-78)
[2017-08-18 13:53] LABS: ALKALINE PHOSPHATASE 79 U/L (45-117); TOTAL BILIRUBIN ADULT 0.4 MG/DL (0.2-1.0); TOTAL PROTEIN 6.7 GM/DL (6.4-8.2); TROPONIN I LESS THAN 0.02 NG/ML (0.02-0.05)
--- NOTE | 2017-08-18 13:55 | RADRPT ---
EXAM DATE/TIME: 08/18/2017 12:59 [facility] COMPARISON: CHEST SINGLE AP, August 05, 2017, 14:38. INDICATIONS : Short of breath, weakness MEDICAL HISTORY : Chronic obstructive pulmonary disease. asbestosis SURGICAL HISTORY : None. ENCOUNTER: Initial ACUITY: 1 day PAIN SCORE: 0/10 LOCATION: Bilateral chest FINDINGS: A single portable frontal view the chest shows elevation of left hemidiaphragm. Bibasilar pulmonary c onsolidations more pronounced on the left are new from the prior study. No discrete effusions. Calcif ied plaque is suspected involving the medial aspects of the right hemidiaphragm. Heart is mildly enla rged. Pulmonary vessels are poorly evaluated due to bronchovascular crowding secondary to the degree of inspiration. CONCLUSION: 1. Cardiomegaly. 2. Bibasilar consolidations. Rai Henderson Jr., MD on August 18, 2017 at 13:51 Board Certified Radiologist. This report was verified electronically.
[2017-08-18 14:27] LABS: AUTOMATED NEUTROPHIL # 8.8 TH/MM3 (1.8-7.7); BASOPHIL # 0.1 TH/MM3 (0-0.2); BASOPHIL % 0.6 % (0.0-2.0); EOSINOPHIL # 0.1 TH/MM3 (0-0.4); EOSINOPHIL % 0.8 % (0.0-4.0); HEMATOCRIT 29.2 % (39.0-51.0); HEMOGLOBIN 9.5 GM/DL (13.0-17.0); LYMPH % 25.1 % (9.0-44.0); LYMPHOCYTE # 3.4 TH/MM3 (1.0-4.8); MEAN CELL VOLUME 87.5 FL (80.0-100.0); MEAN CORPUSCULAR HEMOGLOBIN 28.6 PG (27.0-34.0); MEAN CORPUSCULAR HGB CONC 32.7 % (32.0-36.0); MEAN PLATELET VOLUME 7.8 FL (7.0-11.0); MONO % 7.9 % (0.0-8.0); MONOCYTE # 1.1 TH/MM3 (0-0.9); NEUT % 65.6 % (16.0-70.0); PLATELET COUNT 349 TH/MM3 (150-450); RED BLOOD COUNT 3.33 MIL/MM3 (4.50-5.90); RED CELL DISTRIBUTION WIDTH 14.8 % (11.6-17.2); WHITE BLOOD COUNT 13.4 TH/MM3 (4.0-11.0)
[2017-08-18] MEDS ORDERED: SODIUM CHLORIDE 0.9% FLUSH 10 ML FLUSH IV FLUSH PRN (15:15)
[2017-08-18] MEDS ORDERED: ONDANSETRON HCL 4 MG/2 ML VIAL IVP PRN (15:15)
[2017-08-18] MEDS ORDERED: ACETAMINOPHEN 325 MG TAB PO PRN (15:15)
[2017-08-18] MEDS ORDERED: NALOXONE HCL 0.4 MG/ML AMP IV PUSH PRN (15:15)
[2017-08-18] MEDS ORDERED: MAGNESIUM HYDROXIDE SUSP 30 ML CUP PO PRN (15:15)
--- NOTE | 2017-08-18 15:34 | HHI.HP ---
HPI Service [facility] Primary Care Physician Alvarez Mora MD Admission Diagnosis UTI, dependent edema, inability care for self, bibasilar consolidati Chief Complaint: Generalized weakness Travel History International Travel<30 Days: No Contact w/Intl Traveler <30 Da: No Traveled to Known Affected Are: No History of Present Illness This is an 89 year old male patient with a past medical history which includes: DM type 2, HTN, CKD stage 3, Hyperlipidemia, chronic bronchitis/respiratory airway disease/pulmonary asbestosis, prostate cancer treated with radiation seeds in 1998, which arthritis, lumbar DDD, diverticulosis and mild CAD. The patient presents to the emergency department for generalized weakness and inability to ambulate. The patient was recently hospitalized for UTI, declined long term facility placement and subsequently went home. However, the patient lives with his girlfriend who is in her 90s, she is ambulatory, but unable to assist the patient. The patient is unable to get up out of the recliner to the bathroom to urinate. He notes increasing swelling to lower extremities, increased lethargy, now states he may need long term facility placement. The patient denies any chest pain or shortness of breath, chest pain fevers chills nausea or vomiting. He does complain of generalized weakness and lower extremity edema. Review of Systems ROS Limitations: Poor Historian Constitutional: COMPLAINS OF: Fatigue Cardiovascular: COMPLAINS OF: Lower Extremity Edema Past Family Social History Past Medical History DM type 2, HTN, CKD stage 3, Hyperlipidemia, chronic bronchitis/respiratory airway disease/pulmonary asbestosis, prostate cancer treated with radiation seeds in 1998, which arthritis, lumbar DDD, diverticulosis and mild CAD. Past Surgical History Colonoscopy, excision of basal cell carcinoma from scalp, left temporal area, left and right cheek 2014, bilateral cataracts removed with placement, tonsillectomy Reported Medications Furosemide 40 Mg Tab 40 Mg PO DAILY Albuterol Neb (Albuterol Sulfate) 2.5 Mg/0.5 Ml Neb 2.5 Mg NEB Q6HR NEB Note: The Albuterol Sulfate Inhalation Solution is concentrated and must be diluted. Read complete instructions carefully before using. Oxygen tank (Oxygen) 1 Ea Tank 2 Liter KAMAR.CANULA HS PRN Oxygen Concentrator Portable Gaseous 2 L/min via Nasal Cannula Continuous For 99 months Simvastatin 20 Mg Tab 20 Mg PO HS [place] 3 1000 mg ([place]-3 Fatty Acids) 1 Cap Cap 1,000 Mg PO HS Metformin (Metformin HCl) 500 Mg Tab 500 Mg PO BID With meals Oxybutynin ER 24 HR (Oxybutynin Chloride) 10 Mg Tab 10 Mg PO HS Hydrocodone-Acetaminophen 10-325 mg Tab 1 Tab PO BID PRN Glipizide 5 Mg Tab 2.5 Mg PO BID Take 30 minutes before a meal Fosinopril (Fosinopril Sodium) 20 Mg Tab 20 Mg PO DAILY Diltiazem HCl ER (Diltiazem HCl Coated Beads) 240 Mg Cap 240 Mg PO DAILY Calcium (Calcium Carbonate) 600 Mg Tab 600 Mg PO DAILY Proventil Hfa 6.7 GM Inh (Albuterol Sulfate) 90 Mcg/Act Aer 2 Puff INH Q4-6H PRN Allergies: Coded Allergies: No Known Allergies (Unverified Adverse Reaction, Unknown, 08/18/17) Family History Reviewed and noncontributory Social History and retired Former tobacco use quit smoking in 1974 prior to that smoked 2 packs a day for 40 years Physical Exam Vital Signs Vital Signs Date Time Temp Pulse Resp B/P (MAP) Pulse Ox O2 Delivery O2 Flow Rate FiO2 08/18/17 14:32 75 24 171/71 (104) 95 Room Air 08/18/17 12:17 97.9 77 18 174/74 (107) 95 Physical Exam GENERAL: This is a well-nourished, well-developed patient, in no apparent distress. SKIN: 6 x 4 cm open pressure ulceration along with multiple smaller open areas on bilateral buttocks consistent with pressure ulcerations HEAD: Atraumatic. Normocephalic. No temporal or scalp tenderness. EYES:Extraocular motions intact. No scleral icterus. No injection or drainage. CARDIOVASCULAR: Regular rate and rhythm. Bilateral 2+ Pitting edema RESPIRATORY: diminished bilateral bases GASTROINTESTINAL: Abdomen soft, non-tender, nondistended. No hepato-splenomegaly , or palpable masses. No guarding. MUSCULOSKELETAL: Bilateral lower extremities 2+ pitting edema. No joint tenderness, effusion, or edema noted. No calf tenderness. Negative Homans sign bilaterally. NEUROLOGICAL: Awake and alert. No focal deficits noted. Motor and sensory grossly within normal limits. 4 out of 5 muscle strength in all muscle groups. Normal speech. Laboratory Laboratory Tests Test 08/18/17 12:25 08/18/17 13:55 Urine Color YELLOW Urine Turbidity HAZY Urine pH 6.0 Urine Specific [place] 1.012 Urine Protein 30 Urine Glucose (UA) NEG Urine Ketones NEG Urine Occult Blood NEG Urine Nitrite NEG Urine Bilirubin NEG Urine Urobilinogen LESS THAN 2.0 Urine Leukocyte Esterase LARGE Urine RBC 1 Urine WBC 57 Urine WBC Clumps RARE Urine Squamous Epithelial Cells 1 Urine Renal Epithelial Cells 1 Urine Bacteria OCC Urine Mucus FEW Urine Yeast (Budding) OCC Microscopic Urinalysis Comment CULTURE INDICATED Blood Urea Nitrogen 41 Creatinine 1.34 Random Glucose 113 Total Protein 6.7 Albumin 3.1 Calcium Level 8.7 Alkaline Phosphatase 79 Aspartate Amino Transf (AST/SGOT) 16 Alanine Aminotransferase (ALT/SGPT) 14 Total Bilirubin 0.4 Sodium Level 137 Potassium Level 4.4 Chloride Level 104 Carbon Dioxide Level 23.9 Anion Gap 9 Estimat Glomerular Filtration Rate 50 Total Creatine Kinase 103 Troponin I LESS THAN 0.02 White Blood Count 13.4 Red Blood Count 3.33 Hemoglobin 9.5 Hematocrit 29.2 Mean Corpuscular Volume 87.5 Mean Corpuscular Hemoglobin 28.6 Mean Corpuscular Hemoglobin Concent 32.7 Red Cell Distribution Width 14.8 Platelet Count 349 Mean Platelet Volume 7.8 Neutrophils (%) (Auto) 65.6 Lymphocytes (%) (Auto) 25.1 Monocytes (%) (Auto) 7.9 Eosinophils (%) (Auto) 0.8 Basophils (%) (Auto) 0.6 Neutrophils # (Auto) 8.8 Lymphocytes # (Auto) 3.4 Monocytes # (Auto) 1.1 Eosinophils # (Auto) 0.1 Basophils # (Auto) 0.1 CBC Comment DIFF FINAL Differential Comment Date/Time Source Procedure Growth Status 08/18/17 13:55 Blood Peripheral Aerobic Blood Culture Pending Received 08/18/17 13:55 Blood Peripheral Anaerobic Blood Culture Pending Received 08/18/17 12:25 Urine Random Urine Urine Culture Pending Worksheet Result Diagram: 08/18/17 1355 08/18/17 1225 Imaging Last Impressions Chest X-Ray 08/18/17 0000 Signed Impressions: Service Date/Time: Friday, August 18, 2017 12:59 - CONCLUSION: 1. Cardiomegaly. 2. Bibasilar consolidations. MD Bianka Romo Jr. VTE Risk Assessment Caprini VTE Risk Assessment: Mod/High Risk (score >= 2) Caprini Risk Assessment Model Point Value = 1 Point Value = 2 Point Value = 3 Point Value = 5 Age 41-60 Minor surgery BMI > 25 kg/m2 Swollen legs Varicose veins or History of unexplained or recurrent spontaneous Oral contraceptives or hormone replacement Sepsis (< 1 month) Serious lung disease, including pneumonia (< 1 month) Abnormal pulmonary function Acute myocardial infarction Congestive heart failure (< 1 month) History of inflammatory bowel disease Medical patient at bed rest Age 61-74 Arthroscopic surgery Major open surgery (> 45 min) Laparoscopic surgery (> 45 min) Malignancy Confined to bed (> 72 hours) Immobilizing plaster cast Central venous access Age >= 75 History of VTE Family history of VTE Factor V Leiden Prothrombin [id number] Lupus anticoagulant Anticardiolipin antibodies Elevated serum homocysteine Heparin-induced thrombocytopenia Other congenital or acquired thrombophilia Stroke (< 1 month) Elective arthroplasty Hip, pelvis, or leg fracture Acute spinal cord injury (< 1 month) Prophylaxis Regimen Total Risk Factor Score Risk Level Prophylaxis Regimen 0-1 Low Early ambulation 2 Moderate Order ONE of the following: *Sequential Compression Device (SCD) *Heparin 5000 units SQ BID 3-4 Higher Order ONE of the following medications: *Heparin 5000 units SQ TID *Enoxaparin/Lovenox 40 mg SQ daily (WT < 150 kg, CrCl > 30 mL/min) *Enoxaparin/Lovenox 30 mg SQ daily (WT < 150 kg, CrCl > 10-29 mL/min) *Enoxaparin/Lovenox 30 mg SQ BID (WT < 150 kg, CrCl > 30 mL/min) AND/OR *Sequential Compression Device (SCD) 5 or more Highest Order ONE of the following medications: *Heparin 5000 units SQ TID (Preferred with Epidurals) *Enoxaparin/Lovenox 40 mg SQ daily (WT < 150 kg, CrCl > 30 mL/min) *Enoxaparin/Lovenox 30 mg SQ daily (WT < 150 kg, CrCl > 10-29 mL/min) *Enoxaparin/Lovenox 30 mg SQ BID (WT < 150 kg, CrCl > 30 mL/min) AND *Sequential Compression Device (SCD) Assessment and Plan Problem List: (1) Generalized weakness ICD Codes: R53.1 - Weakness Status: Acute Plan: Consult physical therapy Consult case management for assistance with discharge planning (2) UTI (urinary tract infection) ICD Codes: N39.0 - Urinary tract infection, site not specified Status: Acute Plan: Urinalysis reviewed consistent with UTI culture pending Rocephin started emergency department will continue await urine culture results to narrow antibiotic coverage (3) Dependent edema ICD Codes: R60.9 - Edema, unspecified Status: Acute Plan: CHF vs dependent edema Continue patient's home Lasix 40 mg by mouth daily hold at this time Start Lasix 40 mg IV BID, place flores catheter for accurate I&O last echocardiogram in review of outpatient records 2008 requested ECHO CXR with cardiomegaly and bibasilar congestion 2 view CXR in AM (4) Diabetes mellitus ICD Codes: E11.9 - Type 2 diabetes mellitus without complications Plan: Diabetic diet Accu-Cheks before meals at bedtime with low-dose Lasix, insulin coverage Lipan continue patient's home metformin 500 mg by mouth twice a day (5) HTN (hypertension) ICD Codes: I10 - Essential (primary) hypertension Plan: Continue patient's home lisinopril 20 mg by mouth daily Monitor blood pressure trend (6) Asbestos exposure ICD Codes: Z77.090 - Contact with and (suspected) exposure to asbestos Plan: 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 Assessment and plan formulated with Yadi Ibarra PA-C. I agree with the above. 2-3+ b/l LE edema decreased air movement at lung bases obtain echocardiogram repeat CXR in AM Physician Certification 2 Midnight Certification Type: Admission for Inpatient Services Order for Inpatient Services The services are ordered in accordance with Medicare regulations or non- Medicare payer requirements, as applicable. In the case of services not specified as inpatient-only, they are appropriately provided as inpatient services in accordance with the 2-midnight benchmark. Estimated LOS (days): 3 days is the estimated time the patient will need to remain in the hospital, assuming treatment plan goals are met and no additional complications. Post-Hospital Plan: SNF Problem Qualifiers (1) UTI (urinary tract infection): Qualified Codes: N30.00 - Acute cystitis without hematuria Yadi Ibarra Aug 18, 2017 15:34 Twan Flores DO Aug 19, 2017 11:14
[2017-08-18] MEDS: INSULIN ASPART SUPPLEMENTAL SCALE SQ SCH ×2 (17:00→21:00)
[2017-08-18] MEDS ORDERED: RESP: ALBUTEROL 2.5 MG/IPRATROPIUM 0.5 MG NEB (PRN) NEB (18:15)
[2017-08-18] MEDS: FUROSEMIDE 40 MG/4 ML VIAL IV PUSH SCH (18:22)
[2017-08-18] MEDS: TOLTERODINE TARTRATE 4 MG CAP LA PO SCH (21:00)
[2017-08-18] MEDS: SODIUM CHLORIDE 0.9% FLUSH 10 ML FLUSH IV FLUSH SCH (21:00)
[2017-08-18] MEDS: PRAVASTATIN SOD 40 MG TAB PO SCH (22:15)
[2017-08-18] MEDS: metFORMIN HCL 500 MG TAB PO SCH (22:15)
[2017-08-19 04:17] VITALS: BP 180/79; PULSE 76; RESP 18; TEMP 98.7; O2SAT 93
[2017-08-19 05:17] LABS: AUTOMATED NEUTROPHIL # 7.3 TH/MM3 (1.8-7.7); BASOPHIL % 0.2 % (0.0-2.0); EOSINOPHIL # 0.2 TH/MM3 (0-0.4); EOSINOPHIL % 1.8 % (0.0-4.0); HEMATOCRIT 26.4 % (39.0-51.0); HEMOGLOBIN 8.8 GM/DL (13.0-17.0); LYMPH % 27.5 % (9.0-44.0); LYMPHOCYTE # 3.3 TH/MM3 (1.0-4.8); MEAN CELL VOLUME 87.1 FL (80.0-100.0); MEAN CORPUSCULAR HEMOGLOBIN 29.2 PG (27.0-34.0); MEAN CORPUSCULAR HGB CONC 33.5 % (32.0-36.0); MONO % 9.4 % (0.0-8.0); MONOCYTE # 1.1 TH/MM3 (0-0.9); NEUT % 61.1 % (16.0-70.0); PLATELET COUNT 337 TH/MM3 (150-450); RED BLOOD COUNT 3.03 MIL/MM3 (4.50-5.90); RED CELL DISTRIBUTION WIDTH 14.4 % (11.6-17.2); WHITE BLOOD COUNT 11.9 TH/MM3 (4.0-11.0)
[2017-08-19 05:31] LABS: BICARBONATE 31.2 MEQ/L (21.0-32.0); CALCIUM 8.3 MG/DL (8.5-10.1); CREATININE 0.95 MG/DL (0.60-1.30)
[2017-08-19] MEDS: RESP: ALBUTEROL 2.5 MG/IPRATROPIUM 0.5 MG NEB (SCH) NEB ×3 (07:46→19:51)
[2017-08-19] MEDS: INSULIN ASPART SUPPLEMENTAL SCALE SQ SCH ×4 (08:00→20:44)
[2017-08-19] MEDS: cefTRIAXone INJ 1,000 MG in SODIUM CHLORIDE 0.9% INJ 100 ML IV SCH (08:00)
[2017-08-19 08:27] VITALS: BP 155/82; PULSE 93; RESP 18; TEMP 98.3; O2SAT 94
[2017-08-19] MEDS ORDERED: LISINOPRIL 20 MG TAB PO SCH (09:00)
[2017-08-19] MEDS: SODIUM CHLORIDE 0.9% FLUSH 10 ML FLUSH IV FLUSH SCH ×2 (09:00→20:42)
[2017-08-19] MEDS ORDERED: FUROSEMIDE 40 MG TAB PO SCH (09:00)
--- NOTE | 2017-08-19 09:10 | RADRPT ---
EXAM DATE/TIME: 08/19/2017 08:40 [facility] COMPARISON: CHEST SINGLE AP, August 18, 2017, 12:59. INDICATIONS : Short of breath. MEDICAL HISTORY : Chronic obstructive pulmonary disease. Asbestosis. SURGICAL HISTORY : None. ENCOUNTER: Subsequent ACUITY: 2 days PAIN SCORE: 0/10 LOCATION: Bilateral chest FINDINGS: Minimal airspace changes with mild edema are present in both lungs. The amount of edema has increase d. There is consolidation, pleural effusion or pneumothorax. CONCLUSION: Increased interstitial edema. Rajesh Briones MD FACR on August 19, 2017 at 9:01 Board Certified Radiologist. This report was verified electronically.
[2017-08-19] MEDS: DILTIAZEM-CD 240 MG CAP ER PO SCH (09:55)
[2017-08-19] MEDS: ACETAMINOPHEN/HYDROcodone 325 MG/5 MG TAB PO PRN ×2 (09:55→16:00)
[2017-08-19] MEDS: FUROSEMIDE 40 MG/4 ML VIAL IV PUSH SCH ×2 (09:56→18:27)
[2017-08-19] MEDS: metFORMIN HCL 500 MG TAB PO SCH ×2 (09:56→20:40)
--- NOTE | 2017-08-19 11:05 | HHI.PR ---
Subjective Remarks Patient denies SOB or cough patient reports being on RA through the night Objective Vitals Vital Signs Date Time Temp Pulse Resp B/P (MAP) Pulse Ox O2 Delivery O2 Flow Rate FiO2 08/19/17 08:27 98.3 93 18 155/82 (106) 94 08/19/17 04:17 98.7 76 18 180/79 (112) 93 08/18/17 23:46 98.0 74 18 120/53 (75) 97 08/18/17 20:11 98.2 78 18 113/54 (73) 97 08/18/17 20:00 95 08/18/17 17:42 98.0 72 18 118/53 (74) 95 08/18/17 17:18 08/18/17 17:16 75 22 156/67 (96) 96 Room Air 08/18/17 14:32 75 24 171/71 (104) 95 Room Air 08/18/17 12:17 97.9 77 18 174/74 (107) 95 Result Diagram: 08/19/17 0414 08/19/17 0414 Other Results Laboratory Tests Test 08/18/17 12:25 08/18/17 13:55 08/19/17 04:14 Urine Color YELLOW Urine Turbidity HAZY Urine pH 6.0 Urine Specific [place] 1.012 Urine Protein 30 mg/dL Urine Glucose (UA) NEG mg/dL Urine Ketones NEG mg/dL Urine Occult Blood NEG Urine Nitrite NEG Urine Bilirubin NEG Urine Urobilinogen LESS THAN 2.0 MG/DL Urine Leukocyte Esterase LARGE Urine RBC 1 /hpf Urine WBC 57 /hpf Urine WBC Clumps RARE Urine Squamous Epithelial Cells 1 /hpf Urine Renal Epithelial Cells 1 /hpf Urine Bacteria OCC /hpf Urine Mucus FEW /lpf Urine Yeast (Budding) OCC Microscopic Urinalysis Comment CULTURE INDICATED Blood Urea Nitrogen 41 MG/DL 34 MG/DL Creatinine 1.34 MG/DL 0.95 MG/DL Random Glucose 113 MG/DL 107 MG/DL Total Protein 6.7 GM/DL Albumin 3.1 GM/DL Calcium Level 8.7 MG/DL 8.3 MG/DL Alkaline Phosphatase 79 U/L Aspartate Amino Transf (AST/SGOT) 16 U/L Alanine Aminotransferase (ALT/SGPT) 14 U/L Total Bilirubin 0.4 MG/DL Sodium Level 137 MEQ/L 142 MEQ/L Potassium Level 4.4 MEQ/L 4.0 MEQ/L Chloride Level 104 MEQ/L 105 MEQ/L Carbon Dioxide Level 23.9 MEQ/L 31.2 MEQ/L Anion Gap 9 MEQ/L 6 MEQ/L Estimat Glomerular Filtration Rate 50 ML/MIN 75 ML/MIN Total Creatine Kinase 103 U/L Troponin I LESS THAN 0.02 NG/ML White Blood Count 13.4 TH/MM3 11.9 TH/MM3 Red Blood Count 3.33 MIL/MM3 3.03 MIL/MM3 Hemoglobin 9.5 GM/DL 8.8 GM/DL Hematocrit 29.2 % 26.4 % Mean Corpuscular Volume 87.5 FL 87.1 FL Mean Corpuscular Hemoglobin 28.6 PG 29.2 PG Mean Corpuscular Hemoglobin Concent 32.7 % 33.5 % Red Cell Distribution Width 14.8 % 14.4 % Platelet Count 349 TH/MM3 337 TH/MM3 Mean Platelet Volume 7.8 FL 7.0 FL Neutrophils (%) (Auto) 65.6 % 61.1 % Lymphocytes (%) (Auto) 25.1 % 27.5 % Monocytes (%) (Auto) 7.9 % 9.4 % Eosinophils (%) (Auto) 0.8 % 1.8 % Basophils (%) (Auto) 0.6 % 0.2 % Neutrophils # (Auto) 8.8 TH/MM3 7.3 TH/MM3 Lymphocytes # (Auto) 3.4 TH/MM3 3.3 TH/MM3 Monocytes # (Auto) 1.1 TH/MM3 1.1 TH/MM3 Eosinophils # (Auto) 0.1 TH/MM3 0.2 TH/MM3 Basophils # (Auto) 0.1 TH/MM3 0.0 TH/MM3 CBC Comment DIFF FINAL DIFF FINAL Differential Comment Lactic Acid Level 0.7 mmol/L Imaging Last Impressions Chest X-Ray 08/18/17 0000 Signed Impressions: Service Date/Time: Friday, August 18, 2017 12:59 - CONCLUSION: 1. Cardiomegaly. 2. Bibasilar consolidations. Rai Henderson Jr., MD Objective Remarks GENERAL: This is a well-nourished, well-developed patient, in no apparent distress. SKIN: two erythematous areas bilateral buttocks consistent with pressure ulcerations CARDIOVASCULAR: Regular rate and rhythm RESPIRATORY: clear through out GASTROINTESTINAL: Abdomen soft, non-tender, nondistended. Normal active bowel sounds MUSCULOSKELETAL: Bilateral lower extremities 2+ pitting edema NEURO: Awake and alert. Moves all ext x4 A/P Problem List: (1) Generalized weakness ICD Codes: R53.1 - Weakness Status: Acute Plan: Consult physical therapy Consult case management for assistance with discharge planning (2) UTI (urinary tract infection) ICD Codes: N39.0 - Urinary tract infection, site not specified Status: Acute Plan: Urinalysis reviewed consistent with UTI culture pending Rocephin started emergency department will continue await urine culture results to narrow antibiotic coverage (3) Dependent edema ICD Codes: R60.9 - Edema, unspecified Status: Acute Plan: CHF vs dependent edema Continue patient's home Lasix 40 mg by mouth daily hold at this time Continue Lasix 40 mg IV BID, place flores catheter for accurate I&O last echocardiogram in review of outpatient records 2008 2-D Echo pending, suspect component of CHF exacerbation BNP also requested CXR with cardiomegaly and bibasilar congestion 2 view CXR (08/19) reviewed and reveals increased interstitial edema (4) Diabetes mellitus ICD Codes: E11.9 - Type 2 diabetes mellitus without complications Plan: Diabetic diet Accu-Cheks before meals at bedtime with low-dose Lasix, insulin coverage [place] continue patient's home metformin 500 mg by mouth twice a day (5) HTN (hypertension) ICD Codes: I10 - Essential (primary) hypertension Plan: Will increase home lisinopril to 20 mg BID Monitor blood pressure trend (6) Asbestos exposure ICD Codes: Z77.090 - Contact with and (suspected) exposure to asbestos Plan: 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 Assessment and plan formulated with Yadi Ibarra PA-C. I agree with the above. Problem Qualifiers (1) UTI (urinary tract infection): Qualified Codes: N30.00 - Acute cystitis without hematuria Yadi Ibarra Aug 19, 2017 11:05 Twan Flores DO Aug 24, 2017 00:54
[2017-08-19 16:14] VITALS: BP 119/55; PULSE 84; RESP 18; TEMP 98.2; O2SAT 93
[2017-08-19 19:54] VITALS: O2SAT 94
[2017-08-19 19:57] VITALS: BP 123/56; PULSE 84; RESP 18; TEMP 98.8; O2SAT 94
[2017-08-19] MEDS: PRAVASTATIN SOD 40 MG TAB PO SCH (20:39)
[2017-08-19] MEDS: LISINOPRIL 20 MG TAB PO SCH (20:41)
[2017-08-19] MEDS: TOLTERODINE TARTRATE 4 MG CAP LA PO SCH (20:42)
--- NOTE | 2017-08-19 22:10 | EKG ---
Date Performed: 08/18/2017 Time Performed: 13:33:24 PTAGE: 89 years EKG: Sinus rhythm WITH SINUS ARRHYTHMIA BORDERLINE LEFT AXIS DEVIATION NONSPECIFIC T-WAVE ABNORMALITY BORDERLINE ECG NO PREVIOUS TRACING DOCTOR: Billy Santos Interpretating Date/Time 08/19/2017 22:09:11
[2017-08-20] VITALS (8 sets, daily range): BP systolic 111–132; BP diastolic 56–60; PULSE 63–127; RESP 16–22; TEMP 97.8–98.4; O2SAT 86–95
[2017-08-20] MEDS: ACETAMINOPHEN/HYDROcodone 325 MG/5 MG TAB PO PRN ×3 (00:25→20:42)
[2017-08-20] MEDS: INSULIN ASPART SUPPLEMENTAL SCALE SQ SCH ×4 (08:00→20:43)
[2017-08-20] MEDS: LISINOPRIL 20 MG TAB PO SCH ×2 (08:46→20:24)
[2017-08-20] MEDS: FUROSEMIDE 40 MG/4 ML VIAL IV PUSH SCH ×2 (08:46→18:19)
[2017-08-20] MEDS: SODIUM CHLORIDE 0.9% FLUSH 10 ML FLUSH IV FLUSH SCH ×2 (08:47→20:25)
[2017-08-20] MEDS: metFORMIN HCL 500 MG TAB PO SCH ×2 (08:47→20:24)
[2017-08-20] MEDS: cefTRIAXone INJ 1,000 MG in SODIUM CHLORIDE 0.9% INJ 100 ML IV SCH (08:47)
[2017-08-20] MEDS: DILTIAZEM-CD 240 MG CAP ER PO SCH (08:47)
[2017-08-20] MEDS: RESP: ALBUTEROL 2.5 MG/IPRATROPIUM 0.5 MG NEB (SCH) NEB ×3 (08:57→19:53)
--- NOTE | 2017-08-20 11:56 | HHI.PR ---
Subjective Remarks Patient reports feeling better today not having SOB BLE edema improving Objective Vitals Vital Signs Date Time Temp Pulse Resp B/P (MAP) Pulse Ox O2 Delivery O2 Flow Rate FiO2 08/20/17 08:58 95 08/20/17 08:00 98.1 75 16 127/60 (82) 94 08/20/17 08:00 Room Air 08/20/17 04:00 98.0 79 22 132/59 (83) 94 08/20/17 00:00 98.1 77 20 131/58 (82) 93 08/19/17 20:00 Room Air 08/19/17 19:57 98.8 84 18 123/56 (78) 94 08/19/17 19:54 94 21 08/19/17 16:14 98.2 84 18 119/55 (76) 93 08/19/17 13:50 Room Air Result Diagram: 08/19/174 08/19/17 041 Other Results Laboratory Tests Test 08/18/17 12:25 08/18/17 13:55 08/19/17 04:14 Urine Color YELLOW Urine Turbidity HAZY Urine pH 6.0 Urine Specific [place] 1.012 Urine Protein 30 mg/dL Urine Glucose (UA) NEG mg/dL Urine Ketones NEG mg/dL Urine Occult Blood NEG Urine Nitrite NEG Urine Bilirubin NEG Urine Urobilinogen LESS THAN 2.0 MG/DL Urine Leukocyte Esterase LARGE Urine RBC 1 /hpf Urine WBC 57 /hpf Urine WBC Clumps RARE Urine Squamous Epithelial Cells 1 /hpf Urine Renal Epithelial Cells 1 /hpf Urine Bacteria OCC /hpf Urine Mucus FEW /lpf Urine Yeast (Budding) OCC Microscopic Urinalysis Comment CULTURE INDICATED Blood Urea Nitrogen 41 MG/DL 34 MG/DL Creatinine 1.34 MG/DL 0.95 MG/DL Random Glucose 113 MG/DL 107 MG/DL Total Protein 6.7 GM/DL Albumin 3.1 GM/DL Calcium Level 8.7 MG/DL 8.3 MG/DL Alkaline Phosphatase 79 U/L Aspartate Amino Transf (AST/SGOT) 16 U/L Alanine Aminotransferase (ALT/SGPT) 14 U/L Total Bilirubin 0.4 MG/DL Sodium Level 137 MEQ/L 142 MEQ/L Potassium Level 4.4 MEQ/L 4.0 MEQ/L Chloride Level 104 MEQ/L 105 MEQ/L Carbon Dioxide Level 23.9 MEQ/L 31.2 MEQ/L Anion Gap 9 MEQ/L 6 MEQ/L Estimat Glomerular Filtration Rate 50 ML/MIN 75 ML/MIN Total Creatine Kinase 103 U/L Troponin I LESS THAN 0.02 NG/ML White Blood Count 13.4 TH/MM3 11.9 TH/MM3 Red Blood Count 3.33 MIL/MM3 3.03 MIL/MM3 Hemoglobin 9.5 GM/DL 8.8 GM/DL Hematocrit 29.2 % 26.4 % Mean Corpuscular Volume 87.5 FL 87.1 FL Mean Corpuscular Hemoglobin 28.6 PG 29.2 PG Mean Corpuscular Hemoglobin Concent 32.7 % 33.5 % Red Cell Distribution Width 14.8 % 14.4 % Platelet Count 349 TH/MM3 337 TH/MM3 Mean Platelet Volume 7.8 FL 7.0 FL Neutrophils (%) (Auto) 65.6 % 61.1 % Lymphocytes (%) (Auto) 25.1 % 27.5 % Monocytes (%) (Auto) 7.9 % 9.4 % Eosinophils (%) (Auto) 0.8 % 1.8 % Basophils (%) (Auto) 0.6 % 0.2 % Neutrophils # (Auto) 8.8 TH/MM3 7.3 TH/MM3 Lymphocytes # (Auto) 3.4 TH/MM3 3.3 TH/MM3 Monocytes # (Auto) 1.1 TH/MM3 1.1 TH/MM3 Eosinophils # (Auto) 0.1 TH/MM3 0.2 TH/MM3 Basophils # (Auto) 0.1 TH/MM3 0.0 TH/MM3 CBC Comment DIFF FINAL DIFF FINAL Differential Comment Lactic Acid Level 0.7 mmol/L B-Type Natriuretic Peptide 48 PG/ML Imaging Last Impressions Chest X-Ray 08/18/17 0000 Signed Impressions: Service Date/Time: Friday, August 18, 2017 12:59 - CONCLUSION: 1. Cardiomegaly. 2. Bibasilar consolidations. Rai Henderson Jr., MD Objective Remarks GENERAL: This is a well-nourished, well-developed patient, in no apparent distress. SKIN: two erythematous areas bilateral buttocks consistent with pressure ulcerations CARDIOVASCULAR: Regular rate and rhythm RESPIRATORY: clear through out GASTROINTESTINAL: Abdomen soft, non-tender, nondistended. Normal active bowel sounds MUSCULOSKELETAL: Bilateral lower extremities 1+ pitting edema NEURO: Awake and alert. Moves all ext x4 A/P Problem List: (1) Generalized weakness ICD Codes: R53.1 - Weakness Status: Acute Plan: Consult physical therapy, recommending rehab Consult case management for assistance with discharge planning (2) UTI (urinary tract infection) ICD Codes: N39.0 - Urinary tract infection, site not specified Status: Acute Plan: Urinalysis reviewed consistent with UTI culture pending Rocephin started emergency department will continue await urine culture results to narrow antibiotic coverage urine culture grew Pseudomonas Aeruginosa will DC Rocephin and start PO cipro (3) Dependent edema ICD Codes: R60.9 - Edema, unspecified Status: Acute Plan: CHF vs dependent edema Continue patient's home Lasix 40 mg by mouth daily hold at this time Continue Lasix 40 mg IV BID, place flores catheter for accurate I&O. (08/20) patient's BLE edema is improving and lungs sound more clear. Will continue Lasix 40 mg IV BID for today then change to PO tomorrow(08/21) last echocardiogram in review of outpatient records 2008 2-D Echo pending, suspect component of CHF exacerbation CXR with cardiomegaly and bibasilar congestion 2 view CXR (08/19) reviewed and reveals increased interstitial edema (4) Diabetes mellitus ICD Codes: E11.9 - Type 2 diabetes mellitus without complications Plan: Diabetic diet Accu-Cheks before meals at bedtime with low-dose Lasix, insulin coverage continue patient's home metformin 500 mg by mouth twice a day (5) HTN (hypertension) ICD Codes: I10 - Essential (primary) hypertension Plan: Will increase home lisinopril to 20 mg BID Monitor blood pressure trend (6) Asbestos exposure ICD Codes: Z77.090 - Contact with and (suspected) exposure to asbestos Plan: 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 Assessment and plan formulated with Yadi Ibarra PA-C. I agree with the above. Problem Qualifiers (1) UTI (urinary tract infection): Qualified Codes: N30.00 - Acute cystitis without hematuria Yadi Ibarra Aug 20, 2017 11:56 Twan Flores DO Aug 24, 2017 00:54
--- NOTE | 2017-08-20 13:59 | RADRPT ---
EXAM DATE/TIME: 08/20/2017 13:20 [facility] COMPARISON: CHEST PA & LAT, August 19, 2017, 8:40. CHEST SINGLE AP, August 05, 2017, 14:38. CHEST SINGLE AP, August 18, 2017, 12:59. INDICATIONS : Short of breath MEDICAL HISTORY : Chronic obstructive pulmonary disease. Asbestosis. SURGICAL HISTORY : None. ENCOUNTER: Subsequent ACUITY: 3 days PAIN SCORE: 0/10 LOCATION: chest FINDINGS: One persistent elevation of the left hemidiaphragm with associated mild airspace disease at the left lung base. Redemonstration of calcified pleural plaque with subtle opacity in the right upper lung zo ne which may reflect additional calcified plaque. Cardi recent contours are stable. There is overall improved interstitial prominence. Interval exam is unchanged. CONCLUSION: 1. Improving positive fluid balance. 2. Stable elevation of left hemidiaphragm with volume loss and airspace disease in the left lower jesse g zone consistent with atelectasis. 3. Bilateral pleural plaques with subtle opacity in the right upper lung zone which they reflect adali tional plaque. However, a focal parenchymal nodule cannot be entirely excluded. CT examination may be performed for further evaluation as warranted. John Garcia MD on August 20, 2017 at 13:52 Board Certified Radiologist. This report was verified electronically.
--- NOTE | 2017-08-20 14:23 | ECHRPT ---
Indication: heart failure CONCLUSIONS Normal left ventricular size. The left atrial size is upper limits of normal. EF estimated with difficulty @ 45% - 50% Trace mitral valve regurgitation. Aortic valve mean gradient is 15 mmHg c/w mild aortic valve stenosis Aortic valve area is 1.5 cm. There is mild tricuspid valve regurgitation. The pulmonary valve is not well visualized. Normal left ventricular size. The left atrial size is upper limits of normal. Trace mitral valve regurgitation. Aortic valve mean gradient is 15 mmHg. Aortic valve area is 1.5 cm. There is mild tricuspid valve regurgitation. The pulmonary valve is not well visualized. BP: / HR: Rhythm: MEASUREMENTS (Male / Female) Normal Values Technical Quality:Very technically difficult study 2D ECHO LV Diastolic Diameter PLAX 5.0 cm 4.2 - 5.9 / 3.9 - 5.3 cm LV Systolic Diameter PLAX 3.7 cm IVS Diastolic Thickness 1.8 cm 0.6 - 1.0 / 0.6 - 0.9 cm LVPW Diastolic Thickness 1.1 cm 0.6 - 1.0 / 0.6 - 0.9 cm LV Relative Wall Thickness 0.6 RV Internal Dim ED PLAX 3.1 cm LVOT Diameter 2.0 cm M-MODE Aortic Root Diameter MM 3.2 cm LA Systolic Diameter MM 4.2 cm LA Ao Ratio MM 1.3 AV Cusp Separation MM 1.4 cm DOPPLER AV Peak Velocity 243.0 cm/s AV Peak Gradient 23.6 mmHg AV Mean Gradient 15.0 mmHg AV Velocity Time Integral 57.6 cm LVOT Peak Velocity 114.0 cm/s LVOT Peak Gradient 5.2 mmHg LVOT Velocity Time Integral 27.1 cm AV Area Cont Eq vti 1.5 cm AV Area Cont Eq pk 1.5 cm Mitral E Point Velocity 72.6 cm/s Mitral A Point Velocity 124.0 cm/s Mitral E to A Ratio 0.6 LV E' Lateral Velocity 10.7 cm/s Mitral E to LV E' Lateral Ratio 6.8 LV E' Septal Velocity 11.6 cm/s Mitral E to LV E' Septal Ratio 6.3 FINDINGS LEFT VENTRICLE The left ventricular systolic function is normal with an estimated ejection fraction in the range of 60-65%. Normal left ventricular size. RIGHT VENTRICLE Normal right ventricular size and systolic function. LEFT ATRIUM The left atrial size is upper limits of normal. RIGHT ATRIUM The right atrial size is normal. ATRIAL SEPTUM Normal atrial septal thickness without atrial level shunting by limited color doppler interrogation. AORTA The aortic root and proximal ascending aorta are normal in size on limited imaging. MITRAL VALVE Structurally normal mitral valve. Trace mitral valve regurgitation. AORTIC VALVE Aortic valve mean gradient is 15 mmHg. Aortic valve area is 1.5 cm. TRICUSPID VALVE Structurally normal tricuspid valve. There is mild tricuspid valve regurgitation. PULMONARY VALVE The pulmonary valve is not well visualized. VESSELS The inferior vena cava is normal in size. PERICARDIUM No pericardial effusion. David Ponce MD, FACC, FSCAI (Electronically Signed) Final Date:20 August 2017 14:22
--- NOTE | 2017-08-20 15:39 | PD.WCN.NOT ---
Wound Consult Description: Received consult for wound management bilateral buttocks Communicated with: CHRISTIANO Bhakta [address] [place] [address] and Doctor Recommendation: 1.Please cleanse wound to L buttock with normal saline or wound cleanser and pat dry. Apply Maxorb II just over open wound bed. Apply skin prep to periwound before covering with adhesive foam dressing.change dressing every 2 days or PRN if saturated or dislodged 2. Cleanse partial thickness wounds to R buttock with normal saline or wound cleanser and pat dry. Applied skin prep to periwound and cover with bordered gauze. Change dressing every 2 days pr PRN if saturated or dislodged. Additional Information: Patient seen on [address] [place] [address] for evaluation of wound management of bilateral buttock. Patient was able to stand with assistance of proposal lead writer, Isabelle Bhakta RN and walker. Removed adhesive foam dressing in place to reveal wound with mixed etiology of moisture, pressure and friction to L buttock. Wound presents with ~80% red granulated tissue, ~30% adipose tissue presence of granulation tissue and adipose tissue that is visible indicate stage 3 pressure injury.Wound margins are well defined and maceration noted from 6 to 12 o' clock. Periwound presents with blanchable erythema. Wound drainage is minimal and sero-sanguinous without odor.Wound measures 4cm x2.1cm x 0.2cm. R buttock presents with three wounds that partial thickness and are moisture related. Largest partial thickness wound measures ~2cm x 1cm x~<0.1cm. Wounds present with out drainage or foul odor. Cleansed all wounds with normal saline and patted dry. Applied Maxorb II ( Calcium alginate) dressing just over open wound to L buttock and covered with Allevyn foam dressing. Applied bordered gauze over wounds to R buttock.Patient assisted back in chair. Instructed to patient to reposition self in chair every 15 minutes while sitting. Also will need to be turned and repositioned in bed every 2 hours or PRN for comfort and offloading of pressure from jamie prominences. Katerina Casey [facility] Aug 20, 2017 15:39
[2017-08-20] MEDS ORDERED: LISI-515 PO (16:06)
[2017-08-20] MEDS ORDERED: CIPR-9 PO (16:06)
[2017-08-20] MEDS: CIPROFLOXACIN 500 MG TAB PO SCH (20:24)
[2017-08-20] MEDS: PRAVASTATIN SOD 40 MG TAB PO SCH (20:24)
[2017-08-20] MEDS: TOLTERODINE TARTRATE 4 MG CAP LA PO SCH (20:25)
[2017-08-21] VITALS: BP 119/58; PULSE 74; RESP 18; TEMP 98.4; O2SAT 94
[2017-08-21 04:00] VITALS: BP 132/60; PULSE 80; RESP 18; TEMP 98.3; O2SAT 92
[2017-08-21 08:00] VITALS: BP 130/58; PULSE 80; RESP 18; TEMP 98.4; O2SAT 95
[2017-08-21] MEDS: INSULIN ASPART SUPPLEMENTAL SCALE SQ SCH ×2 (08:00→12:00)
[2017-08-21] MEDS: RESP: ALBUTEROL 2.5 MG/IPRATROPIUM 0.5 MG NEB (SCH) NEB ×2 (08:00→11:01)
--- NOTE | 2017-08-21 08:56 | RADRPT ---
EXAM DATE/TIME: 08/21/2017 08:30 [facility] COMPARISON: CHEST PA & LAT, August 19, 2017, 8:40. INDICATIONS : Short of breath. MEDICAL HISTORY : Chronic obstructive pulmonary disease. asbestosis SURGICAL HISTORY : None. ENCOUNTER: Initial ACUITY: 3 days PAIN SCORE: 0/10 LOCATION: Bilateral chest FINDINGS: Persistent elevation of the left hemidiaphragm with mild airspace disease in the left lower lung zone . Redemonstration of calcified pleural plaques the. Persistent diffuse interstitial prominence. Cardi omediastinal contours are stable. Remainder the exam is unchanged. CONCLUSION: 1. Persistent mild positive fluid balance. 2. Elevation of the left hemidiaphragm with mild airspace disease in the left lower lung zone, likely atelectasis. John Garcia MD on August 21, 2017 at 8:50 Board Certified Radiologist. This report was verified electronically.
[2017-08-21] MEDS: LISINOPRIL 20 MG TAB PO SCH (09:12)
[2017-08-21] MEDS: DILTIAZEM-CD 240 MG CAP ER PO SCH (09:12)
[2017-08-21] MEDS: CIPROFLOXACIN 500 MG TAB PO SCH (09:12)
[2017-08-21] MEDS: metFORMIN HCL 500 MG TAB PO SCH (09:12)
[2017-08-21] MEDS: SODIUM CHLORIDE 0.9% FLUSH 10 ML FLUSH IV FLUSH SCH (09:13)
--- NOTE | 2017-08-21 10:12 | HHI.DS ---
Discharge Summary Admission Date Aug 18, 2017 at 15:21 Discharge Date: Aug 21, 2017 Admitting Diagnosis UTI, dependent edema, inability care for self, bibasilar consolidati (1) Generalized weakness Diagnosis: Principal ICD Codes: R53.1 - Weakness Status: Acute (2) UTI (urinary tract infection) Diagnosis: Principal ICD Codes: N39.0 - Urinary tract infection, site not specified Status: Acute (3) Systolic CHF, acute on chronic Diagnosis: Principal ICD Codes: I50.23 - Acute on chronic systolic (congestive) heart failure (4) Diabetes mellitus Diagnosis: Secondary ICD Codes: E11.9 - Type 2 diabetes mellitus without complications (5) HTN (hypertension) Diagnosis: Secondary ICD Codes: I10 - Essential (primary) hypertension (6) Asbestos exposure Diagnosis: Secondary ICD Codes: Z77.090 - Contact with and (suspected) exposure to asbestos (7) Buttock wound Diagnosis: Principal ICD Codes: S31.809A - Unspecified open wound of unspecified buttock, initial encounter Brief History This is an 89 year old male patient with a past medical history which includes: DM type 2, HTN, CKD stage 3, Hyperlipidemia, chronic bronchitis/respiratory airway disease/pulmonary asbestosis, prostate cancer treated with radiation seeds in 1998, which arthritis, lumbar DDD, diverticulosis and mild CAD. The patient presents to the emergency department for generalized weakness and inability to ambulate. The patient was recently hospitalized for UTI, declined detention facility placement and subsequently went home. However, the patient lives with his girlfriend who is in her 90s, she is ambulatory, but unable to assist the patient. The patient is unable to get up out of the recliner to the bathroom to urinate. He notes increasing swelling to lower extremities, increased lethargy, now states he may need detention facility placement. The patient denies any chest pain or shortness of breath, chest pain fevers chills nausea or vomiting. He does complain of generalized weakness and lower extremity edema. CBC/BMP: 08/19/17 0414 08/19/17 0414 Significant Findings Laboratory Tests Test 08/18/17 12:25 08/18/17 13:55 08/19/17 04:14 Urine Turbidity HAZY (CLEAR) Urine Protein 30 mg/dL (NEG-TRACE) Urine Leukocyte Esterase LARGE (NEG) Urine WBC 57 /hpf (0-5) Urine WBC Clumps RARE (NONE) Urine Bacteria OCC /hpf (NONE) Urine Mucus FEW /lpf (OCC) Urine Yeast (Budding) OCC (NONE) Blood Urea Nitrogen 41 MG/DL (7-18) 34 MG/DL (7-18) Creatinine 1.34 MG/DL (0.60-1.30) Random Glucose 113 MG/DL (74-106) 107 MG/DL (74-106) Albumin 3.1 GM/DL (3.4-5.0) Estimat Glomerular Filtration Rate 50 ML/MIN (>89) 75 ML/MIN (>89) Troponin I LESS THAN 0.02 NG/ML White Blood Count 13.4 TH/MM3 (4.0-11.0) 11.9 TH/MM3 (4.0-11.0) Red Blood Count 3.33 MIL/MM3 (4.50-5.90) 3.03 MIL/MM3 (4.50-5.90) Hemoglobin 9.5 GM/DL (13.0-17.0) 8.8 GM/DL (13.0-17.0) Hematocrit 29.2 % (39.0-51.0) 26.4 % (39.0-51.0) Neutrophils # (Auto) 8.8 TH/MM3 (1.8-7.7) Monocytes # (Auto) 1.1 TH/MM3 (0-0.9) 1.1 TH/MM3 (0-0.9) Monocytes (%) (Auto) 9.4 % (0.0-8.0) Calcium Level 8.3 MG/DL (8.5-10.1) Imaging Last Impressions Chest X-Ray 08/21/17 0600 Signed Impressions: Service Date/Time: Monday, August 21, 2017 08:30 - CONCLUSION: 1. Persistent mild positive fluid balance. 2. Elevation of the left hemidiaphragm with mild airspace disease in the left lower lung zone, likely atelectasis. John Garcia MD PE at Discharge GENERAL: This is a well-nourished, well-developed patient, in no apparent distress. SKIN: two erythematous areas bilateral buttocks consistent with pressure ulcerations CARDIOVASCULAR: Regular rate and rhythm RESPIRATORY: clear through out GASTROINTESTINAL: Abdomen soft, non-tender, nondistended. Normal active bowel sounds MUSCULOSKELETAL: Bilateral lower extremities 1+ pitting edema NEURO: Awake and alert. Moves all ext x4 Hospital Course Acute on Chronic CHF - Echocardiogram (08/20/17) --> EF 45-50% - Pt admitted with c/o increased weakness, LE edema, and inability to ambulate - Pt had marked b/l LE edema with improved with IV diuresis and compression stockings - lisinopril 20mg BID - consider starting BB outpt if pt's blood pressure will tolerated - discharge to SNF - see discharge orders - f/u with PCP, Dr. Alvarez Mora, after discharge from [facility] (1) Generalized weakness ICD Codes: R53.1 - Weakness Status: Acute - PT - Discharge to SNF (2) UTI (urinary tract infection) ICD Codes: N39.0 - Urinary tract infection, site not specified - UA (08/18/17) --> pseudomonas - ciprofloxin (3) Dependent edema ICD Codes: R60.9 - Edema, unspecified Status: Acute Plan: CHF vs dependent edema Continue patient's home Lasix 40 mg by mouth daily hold at this time Continue Lasix 40 mg IV BID, place flores catheter for accurate I&O. (08/20) patient's BLE edema is improving and lungs sound more clear. Will continue Lasix 40 mg IV BID for today then change to PO tomorrow(08/21) last echocardiogram in review of outpatient records 2008 2-D Echo pending, suspect component of CHF exacerbation CXR with cardiomegaly and bibasilar congestion 2 view CXR (08/19) reviewed and reveals increased interstitial edema - see above (4) Diabetes mellitus ICD Codes: E11.9 - Type 2 diabetes mellitus without complications - resume metformin upon discharge (5) HTN (hypertension) ICD Codes: I10 - Essential (primary) hypertension Plan: Will increase home lisinopril to 20 mg BID Monitor blood pressure trend (6) Asbestos exposure ICD Codes: Z77.090 - Contact with and (suspected) exposure to asbestos Plan: 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 - Maxorb-II daily q 2 days Pt Condition on Discharge: Stable Discharge Disposition: Discharge to SNF Discharge Instructions DIET: Follow Instructions for: Heart Healthy Diet, Diabetic Diet Activities you can perform: Weight Bearing as Sharon Follow up Referrals: PCP Follow-up - [address] Mora [facility] New Medications: Potassium Bicarbonate Effervescent (Klor-Con EF) 25 Meq Tab 25 MEQ PO DAILY for Electrolyte Replacement, #30 TAB 0 Refills Ciprofloxacin (Cipro) 500 Mg Tab 500 MG PO Q12HR for antibiotic for 6 Days, #12 TAB 0 Refills Lisinopril (Lisinopril) 20 Mg Tab 20 MG PO BID for blood presure, #60 TAB 0 Refills Continued Medications: Albuterol 6.7 GM Inh (Proventil Hfa 6.7 GM Inh) 90 Mcg/Act Aer 2 PUFF INH Q4-6H PRN for SHORTNESS OF BREATH, #1 INHALER 0 Refills Albuterol Neb (Albuterol Neb) 2.5 Mg/0.5 Ml Neb 2.5 MG NEB Q6HR NEB, BOX Note: The Albuterol Sulfate Inhalation Solution is concentrated and must be diluted. Read complete instructions carefully before using. Calcium Carbonate (Calcium) 600 Mg Tab 600 MG PO DAILY Diltiazem HCl Coated Beads (Diltiazem HCl ER) 240 Mg Cap 240 MG PO DAILY for Blood Pressure Management Furosemide (Furosemide) 40 Mg Tab 40 MG PO DAILY, #30 TAB 0 Refills Glipizide (Glipizide) 5 Mg Tab 2.5 MG PO BID for Blood Sugar Management, #60 TAB 0 Refills Take 30 minutes before a meal Hydrocodone-Acetaminophen (Hydrocodone-Acetaminophen) 10-325 mg Tab 1 TAB PO BID PRN for PAIN, #75 TAB 0 Refills (This prescription has been renewed ) Metformin (Metformin) 500 Mg Tab 500 MG PO BID for Blood Sugar Management, #60 TAB 0 Refills With meals Rough And Ready-3 Fatty Acids (Rough And Ready 3 1000 mg) 1 Cap Cap 1000 MG PO HS for Nutritional Supplement Oxybutynin ER 24 HR (Oxybutynin ER 24 HR) 10 Mg Tab 10 MG PO HS for Overactive Bladder, TAB 0 Refills Simvastatin (Simvastatin) 20 Mg Tab 20 MG PO HS for Cholesterol Management, #30 TAB 0 Refills Discontinued Medications: Fosinopril (Fosinopril) 20 Mg Tab 20 MG PO DAILY for Blood Pressure Management, #30 TAB 0 Refills Twan Flores DO Aug 21, 2017 10:12
--- NOTE | 2017-08-21 10:26 | HHI.DCPOC ---
Discharge Care Plan Diagnosis: (1) Systolic CHF, acute on chronic (2) Buttock wound (3) Generalized weakness (4) UTI (urinary tract infection) (5) Dependent edema (6) HTN (hypertension) (7) Diabetes mellitus Goals to Promote Your Health * To prevent worsening of your condition and complications * To maintain your health at the optimal level Directions to Meet Your Goals Take your medications as prescribed Follow your dietary instruction Follow activity as directed Keep your appointments as scheduled Take your immunizations and boosters as scheduled If your symptoms worsen call your PCP, if no PCP go to Urgent Care Center or Emergency Room Smoking is Dangerous to Your Health. Avoid second hand smoke Call the 24-hour hour crisis hotline for domestic abuse at Twan Flores DO Aug 21, 2017 10:26
[2017-08-21] MEDS ORDERED: KLOR25TA2 PO (10:36)
[2017-08-21] MEDS ORDERED: HYDR-3583 PO (10:36)
[2017-08-21 11:01] LABS: AUTOMATED NEUTROPHIL # 6.2 TH/MM3 (1.8-7.7); BASOPHIL % 0.3 % (0.0-2.0); EOSINOPHIL # 0.2 TH/MM3 (0-0.4); EOSINOPHIL % 1.4 % (0.0-4.0); HEMATOCRIT 27.2 % (39.0-51.0); HEMOGLOBIN 9.1 GM/DL (13.0-17.0); LYMPH % 30.8 % (9.0-44.0); LYMPHOCYTE # 3.3 TH/MM3 (1.0-4.8); MEAN CORPUSCULAR HEMOGLOBIN 29.3 PG (27.0-34.0); MEAN CORPUSCULAR HGB CONC 33.3 % (32.0-36.0); MEAN PLATELET VOLUME 7.3 FL (7.0-11.0); MONO % 8.8 % (0.0-8.0); MONOCYTE # 0.9 TH/MM3 (0-0.9); NEUT % 58.7 % (16.0-70.0); PLATELET COUNT 339 TH/MM3 (150-450); RED CELL DISTRIBUTION WIDTH 14.5 % (11.6-17.2); WHITE BLOOD COUNT 10.6 TH/MM3 (4.0-11.0)
[2017-08-21 11:03] VITALS: O2SAT 94
[2017-08-21 11:19] LABS: BICARBONATE 33.7 MEQ/L (21.0-32.0); CALCIUM 8.2 MG/DL (8.5-10.1); CREATININE 1.11 MG/DL (0.60-1.30); MAGNESIUM 2.1 MG/DL (1.5-2.5)
[2017-08-21 12:00] VITALS: BP 90/45; PULSE 91; RESP 20; TEMP 98.3; O2SAT 91
[2017-08-21] MEDS: ACETAMINOPHEN/HYDROcodone 325 MG/5 MG TAB PO PRN (12:14)
[2017-08-22] MEDS ORDERED: FUROSEMIDE 40 MG TAB PO SCH (09:00)
== END 2017-08-21 13:49 | DRG 291 ==
LOC: NEDAMB 12:02 → NEDA 15:21 → NEPGCP 17:29 → N04A 08-19 14:03
PROVIDERS: ADMIT Hospitalist; ATTEND Hospitalist
DX: I13.0 Hypertensive heart and chronic kidney disease with heart failure and stage 1 through stage 4 chronic kidney disease, or unspecified chronic kidney disease (principal); L89.323 Pressure ulcer of left buttock, stage 3; L89.312 Pressure ulcer of right buttock, stage 2; E11.22 Type 2 diabetes mellitus with diabetic chronic kidney disease; N18.3 Chronic kidney disease, stage 3 (moderate); B96.5 Pseudomonas (aeruginosa) (mallei) (pseudomallei) as the cause of diseases classified elsewhere; I50.23 Acute on chronic systolic (congestive) heart failure; N30.00 Acute cystitis without hematuria; I25.10 Atherosclerotic heart disease of native coronary artery without angina pectoris; R53.1 Weakness; E78.5 Hyperlipidemia, unspecified; M17.0 Bilateral primary osteoarthritis of knee; J42 Unspecified chronic bronchitis; M51.36 Other intervertebral disc degeneration, lumbar region; Z77.090 Contact with and (suspected) exposure to asbestos; M19.90 Unspecified osteoarthritis, unspecified site; K57.90 Diverticulosis of intestine, part unspecified, without perforation or abscess without bleeding; Z85.828 Personal history of other malignant neoplasm of skin; Z92.3 Personal history of irradiation; Z79.84 Long term (current) use of oral hypoglycemic drugs; Z85.46 Personal history of malignant neoplasm of prostate; Z87.891 Personal history of nicotine dependence
CPT/HCPCS: 71045; 71046; 80048; 80053; 81001; 82550; 82948; 83605; 83735; 83880; 84484; 85025; 87040; 87077; 87086; 87186; 93005; 93306; 94640; 94664; 96365; J0696; J1815; J1940

== ENCOUNTER 2017-08-29 16:58 | Emergency (ER) | payer MEDICARE ==
[~2017-08-29] VITALS: Ht 167.6 cm; Wt 96.0 kg
[~2017-08-29 16:58] MED LIST changes: +CIPR-9 PO; -FISH1000 PO; -FOSI20TA PO; +FURO40TA PO; +KLOR25TA2 PO; +LISI-515 PO; -MACR100C2 PO
[2017-08-29 17:05] VITALS: BP 167/80; PULSE 79; RESP 20; TEMP 99; O2SAT 95
[2017-08-29] MEDS ORDERED: SODIUM CHLORIDE 0.9% FLUSH 10 ML FLUSH IV FLUSH PRN (17:30)
[2017-08-29] MEDS ORDERED: DOCU8.6T PO (17:44)
[2017-08-29] MEDS ORDERED: ALBUAER3 INH (17:44)
[2017-08-29 17:51] LABS: AUTOMATED NEUTROPHIL # 9.8 TH/MM3 (1.8-7.7); BASOPHIL % 0.2 % (0.0-2.0); EOSINOPHIL # 0.1 TH/MM3 (0-0.4); HEMATOCRIT 29.9 % (39.0-51.0); HEMOGLOBIN 9.8 GM/DL (13.0-17.0); LYMPH % 24.8 % (9.0-44.0); LYMPHOCYTE # 3.6 TH/MM3 (1.0-4.8); MEAN CELL VOLUME 87.3 FL (80.0-100.0); MEAN CORPUSCULAR HEMOGLOBIN 28.7 PG (27.0-34.0); MEAN CORPUSCULAR HGB CONC 32.8 % (32.0-36.0); MEAN PLATELET VOLUME 7.3 FL (7.0-11.0); MONO % 6.8 % (0.0-8.0); NEUT % 67.2 % (16.0-70.0); PLATELET COUNT 341 TH/MM3 (150-450); RED BLOOD COUNT 3.43 MIL/MM3 (4.50-5.90); RED CELL DISTRIBUTION WIDTH 13.6 % (11.6-17.2); WHITE BLOOD COUNT 14.6 TH/MM3 (4.0-11.0)
--- NOTE | 2017-08-29 17:53 | PD ---
HPI Chief Complaint: Altered Mental Status Time Seen by Provider: 17:05 Travel History International Travel<30 days: No Contact w/Intl Traveler<30days: No Traveled to known affect area: No History of Present Illness HPI Patient is an 89-year-old male presents emergency department for evaluation of elevated creatinine. Patient has a history of altered mental status somewhat from dementia and somewhat from urinary tract infection. Patient has been here this month already and was discharged to a rehab facility. On routine lab work was noted that his creatinine was elevated. senior care staff said they discussed the patient with Dr. Flores for transfer to the emergency department. Patient is pleasantly confused, he thinks it is 1979, he is aware that Alvarez Murillo is the president. He states that recently he inhaled some burning insulation while he was in a movie yesterday, he states he was actually in the movie and not just watching it. Certainly is pleasantly confused and unable to provide history and has poor insight as to why he is in the emergency department He does deny any chest pain shortness of breath abdominal pain nausea vomiting diarrhea or burning when he urinates. PFSH Past Medical History Arthritis: Yes Asthma: No Blood Disorders: No Anxiety: No Depression: No Heart Rhythm Problems: No Cancer: Yes (PROSTATE AND SKIN) Cardiovascular Problems: Yes High Cholesterol: Yes Chemotherapy: No Congestive Heart Failure: Yes COPD: Yes Diabetes: Yes Patient Takes Glucophage: Yes Diminished Hearing: No Endocrine: Yes Gastrointestinal Disorders: Yes (HX OF BLEEDING ULCERS) Genitourinary: Yes (HX OF PROSTATE CA(TREATED WITH RADIOACTIVE SEEDS), urgency) Hepatitis: No Hiatal Hernia: No Hypertension: Yes Immune Disorder: No Medical other: Yes (ELEVATED CHOLESTEROL, skin CA) Musculoskeletal: Yes (ARTHRITIS knees, L sciatic (past), carpal tunnel bilat hands) Neurologic: No Psychiatric: No Reproductive: No Respiratory: Yes Radiation Therapy: Yes Sleep Apnea: No Thyroid Disease: No Ulcer: Yes Past Surgical History Abdominal Surgery: No AICD: No Cardiac Surgery: No Ear Surgery: No Endocrine Surgery: No Eye Surgery: Yes (bilat CATARACT) Genitourinary Surgery: Yes (SEED IMPLANTS FOR PROSTATE CA) Gynecologic Surgery: No Joint Replacement: No Oral Surgery: Yes (TONSILLECTOMY) Pacemaker: No Thoracic Surgery: No Tonsillectomy: Yes Other Surgery: Yes Social History Alcohol Use: Yes (OCC) Tobacco Use: No Substance Use: No Allergies-Medications (Allergen,Severity, Reaction): Coded Allergies: No Known Allergies (Unverified Adverse Reaction, Unknown, 08/29/17) Reported Meds & Prescriptions Reported Meds & Active Scripts Active Klor-Con EF (Potassium Bicarbonate) 25 Meq Tab 25 Meq PO DAILY Hydrocodone-Acetaminophen 10-325 mg Tab 1 Tab PO BID PRN Lisinopril 20 Mg Tab 20 Mg PO BID Reported Docusate Sodium-Senna (Sennosides-Docusate Sodium) 8.6-50 Mg Tab 1 Tab PO HS Proair Hfa 8.5 GM Inh (Albuterol Sulfate) 90 Mcg/Act Aer 2 Puff INH Q4-6H PRN 108 mcg/actuation Albuterol Neb (Albuterol Sulfate) 2.5 Mg/0.5 Ml Neb 2.5 Mg NEB Q6HR NEB Note: The Albuterol Sulfate Inhalation Solution is concentrated and must be diluted. Read complete instructions carefully before using. Shubuta 3 1000 mg (Shubuta-3 Fatty Acids) 1 Cap Cap 1,000 Mg PO HS Metformin (Metformin HCl) 500 Mg Tab 500 Mg PO BID With meals Oxybutynin ER 24 HR (Oxybutynin Chloride) 10 Mg Tab 10 Mg PO HS Glipizide 5 Mg Tab 2.5 Mg PO BID Take 30 minutes before a meal Diltiazem HCl ER (Diltiazem HCl Coated Beads) 240 Mg Cap 240 Mg PO DAILY Proventil Hfa 6.7 GM Inh (Albuterol Sulfate) 90 Mcg/Act Aer 2 Puff INH Q4-6H PRN Review of Systems Except as stated in HPI: all other systems reviewed are Neg Physical Exam Narrative GENERAL: Well-developed well-nourished, pleasantly confused. SKIN: Focused skin assessment warm/dry. HEAD: Atraumatic. Normocephalic. EYES: Pupils equal and round. No scleral icterus. No injection or drainage. ENT: No nasal bleeding or discharge. Mucous membranes pink and moist. NECK: Trachea midline. No JVD. CARDIOVASCULAR: Regular rate and rhythm. No murmur appreciated. RESPIRATORY: No accessory muscle use. Clear to auscultation. Breath sounds equal bilaterally. GASTROINTESTINAL: Abdomen soft, non-tender, nondistended. Hepatic and splenic margins not palpable. MUSCULOSKELETAL: No obvious deformities. No clubbing. No cyanosis. No edema. NEUROLOGICAL: Awake and alert. Cranial nerves II through XII grossly intact and nonfocal, 5 out of 5 strength in all 4 extremities per PSYCHIATRIC: Appropriate mood and affect; insight and judgment normal. Data Data Last Documented VS Vital Signs Date Time Temp Pulse Resp B/P (MAP) Pulse Ox O2 Delivery O2 Flow Rate FiO2 08/29/17 17:21 (109) Nasal Cannula 2.00 08/29/17 17:05 99.0 79 20 95 Orders Orders Complete Blood Count With Diff (08/29/17 17:18) Comprehensive Metabolic Panel (08/29/17 17:18) Prothrombin Time / Inr (Pt) (08/29/17 17:18) Act Partial Throm Time (Ptt) (08/29/17 17:18) Thyroid Stimulating Hormone (08/29/17 17:18) Urinalysis - C+S If Indicated (08/29/17 17:18) Blood Glucose (08/29/17 17:18) Ecg Monitoring (08/29/17 17:18) Iv Access Insert/Monitor (08/29/17 17:18) Oximetry (08/29/17 17:18) Sodium Chloride 0.9% Flush (Ns Flush) (08/29/17 17:30) Sodium Chlorid 0.9% 500 Ml Inj (Ns 500 M (08/29/17 18:30) Ed Discharge Order (08/29/17 18:36) Urine Culture (08/29/17 18:00) Labs Laboratory Tests Test 08/29/17 17:23 08/29/17 18:00 White Blood Count 14.6 TH/MM3 Red Blood Count 3.43 MIL/MM3 Hemoglobin 9.8 GM/DL Hematocrit 29.9 % Mean Corpuscular Volume 87.3 FL Mean Corpuscular Hemoglobin 28.7 PG Mean Corpuscular Hemoglobin Concent 32.8 % Red Cell Distribution Width 13.6 % Platelet Count 341 TH/MM3 Mean Platelet Volume 7.3 FL Neutrophils (%) (Auto) 67.2 % Lymphocytes (%) (Auto) 24.8 % Monocytes (%) (Auto) 6.8 % Eosinophils (%) (Auto) 1.0 % Basophils (%) (Auto) 0.2 % Neutrophils # (Auto) 9.8 TH/MM3 Lymphocytes # (Auto) 3.6 TH/MM3 Monocytes # (Auto) 1.0 TH/MM3 Eosinophils # (Auto) 0.1 TH/MM3 Basophils # (Auto) 0.0 TH/MM3 CBC Comment DIFF FINAL Differential Comment Prothrombin Time 11.0 SEC Prothromb Time International Ratio 1.1 RATIO Activated Partial Thromboplast Time 24.0 SEC Blood Urea Nitrogen 56 MG/DL Creatinine 1.68 MG/DL Random Glucose 91 MG/DL Total Protein 6.5 GM/DL Albumin 2.8 GM/DL Calcium Level 8.8 MG/DL Alkaline Phosphatase 72 U/L Aspartate Amino Transf (AST/SGOT) 22 U/L Alanine Aminotransferase (ALT/SGPT) 12 U/L Total Bilirubin 0.2 MG/DL Sodium Level 139 MEQ/L Potassium Level 4.3 MEQ/L Chloride Level 105 MEQ/L Carbon Dioxide Level 26.5 MEQ/L Anion Gap 8 MEQ/L Estimat Glomerular Filtration Rate 39 ML/MIN Thyroid Stimulating Hormone 3rd Gen 0.669 uIU/ML Urine Color YELLOW Urine Turbidity HAZY Urine pH 5.5 Urine Specific [place] 1.009 Urine Protein 30 mg/dL Urine Glucose (UA) NEG mg/dL Urine Ketones NEG mg/dL Urine Occult Blood TRACE Urine Nitrite NEG Urine Bilirubin NEG Urine Urobilinogen LESS THAN 2.0 MG/DL Urine Leukocyte Esterase LARGE Urine RBC 3 /hpf Urine WBC 35 /hpf Urine WBC Clumps FEW Urine Squamous Epithelial Cells <1 /hpf Urine Bacteria MANY /hpf Urine Mucus FEW /lpf Microscopic Urinalysis Comment CATH-CULTURE IND MDM Medical Decision Making Medical Screen Exam Complete: Yes Emergency Medical Condition: Yes Differential Diagnosis Dementia, delirium, urinary tract infection, acute kidney injury. Narrative Course Patient was room to the emergency department, review of his labs in our system show that on August 26 patient's creatinine was 2.12, is improved today to 1.68 by our labs, his baseline creatinine appears to be about 1. Patient does have an elevated white blood cell count and has white blood cell clumps in his urine but is on antibiotics for urinary tract infection already. Patient's results were discussed with Dr. Trujillo who is on-call for [facility] and Dr. Flores, he states he is familiar with the patient and knows that he has some baseline mental status problems and some baseline dementia. He states that if they had called him from the halfway he would have instructed them over the phone rather than having him transported to the emergency department. After our discussion the patient is deemed stable for return to the emergency department which I think is an appropriate disposition for this patient. Diagnosis Primary Impression: Acute kidney injury Additional Impression: Dementia Additional Instructions: Patient was discussed with Dr. Trujillo, he would like to be called tomorrow morning for further instructions in this patient. Was given normal saline in the emergency department. He agrees patient can return to his facility and resume his medication regimen as previous. Disposition: 01 DISCHARGE HOME Condition: Stable Laith Mathur MD Aug 29, 2017 17:53
[2017-08-29 18:01] LABS: INTERNATIONAL NORMALIZED RATIO 1.1 RATIO
[2017-08-29 18:07] LABS: ALBUMIN 2.8 GM/DL (3.4-5.0); AST (GOT) 22 U/L (15-37); BICARBONATE 26.5 MEQ/L (21.0-32.0); BLOOD UREA NITROGEN 56 MG/DL (7-18); CALCIUM 8.8 MG/DL (8.5-10.1); CHLORIDE 105 MEQ/L (98-107); CREATININE 1.68 MG/DL (0.60-1.30); GLOMERULAR FILTRATION RATE 39 ML/MIN (>89); GLUCOSE,RANDOM 91 MG/DL (74-106); SODIUM (NA) 139 MEQ/L (136-145)
[2017-08-29 18:08] LABS: ALT (GPT) 12 U/L (12-78)
[2017-08-29 18:17] LABS: ALKALINE PHOSPHATASE 72 U/L (45-117); TOTAL BILIRUBIN ADULT 0.2 MG/DL (0.2-1.0); TOTAL PROTEIN 6.5 GM/DL (6.4-8.2)
[2017-08-29] MEDS ORDERED: SODIUM CHLORID 0.9% 500 ML INJ 500 ML IV ONE (18:30)
[2017-08-29 18:40] LABS: BACTERIA, URINE MANY /hpf; BILIRUBIN, URINE NEG (NEG); BLOOD, URINE TRACE (NEG); GLUCOSE,URINE NEG (NEG); KETONE, URINE NEG (NEG); MUCUS URINE FEW /lpf (OCC); NITRITE,URINE NEG (NEG); PH, URINE 5.5 (5.0-8.5); SQUAMOUS EPITHELIAL CELL URINE <1 /hpf (0-5); URINE COLOR YELLOW (YELLW/STRAW); URINE LEUKOCYTE ESTERASE LARGE (NEG); WHITE BLOOD CELL CLUMPS FEW
--- NOTE | 2017-08-29 21:11 | EKG ---
Date Performed: 08/29/2017 Time Performed: 17:13:59 PTAGE: 89 years EKG: Sinus rhythm WITH OCCASIONAL SUPRAVENTRICULAR PREMATURE COMPLEXES BORDERLINE LEFT AXIS DEVIATION NONSPECIFIC INTR AVENTRICULAR CONDUCTION DELAY NONSPECIFIC T-WAVE ABNORMALITY BORDERLINE ECG PREVIOUS TRACING : 08/18/2017 13.33 No significant change from previous tracing noted. DOCTOR: Jaswinder De La Paz Interpretating Date/Time 08/29/2017 21:10:10
== END 2017-08-29 22:09 | disposition home or self-care (01) ==
LOC: NEPE 16:58
DX: N17.9 Acute kidney failure, unspecified (principal); F03.90 Unspecified dementia, unspecified severity, without behavioral disturbance, psychotic disturbance, mood disturbance, and anxiety; N39.0 Urinary tract infection, site not specified; I11.0 Hypertensive heart disease with heart failure; I50.9 Heart failure, unspecified; E11.9 Type 2 diabetes mellitus without complications; E78.00 Pure hypercholesterolemia, unspecified; J44.9 Chronic obstructive pulmonary disease, unspecified; Z79.84 Long term (current) use of oral hypoglycemic drugs
CPT/HCPCS: 80053; 81001; 84443; 85025; 85610; 85730; 87086; 93005; 99283; J7040

== ENCOUNTER → 2017-09-08 | Outpatient (CLI) | payer MEDICARE ==
[~2017-09-08] MED LIST changes: +ALBUAER3 INH; -CALC600T5 PO; -CIPR-9 PO; +DOCU8.6T PO; -FURO40TA PO; -OXYGENTANK NAS.CANULA; -SIMV20TA PO
--- NOTE | 2017-09-08 17:16 | MG ---
cc: Edi Gross MD, David J MD #[id number] INTRODUCTION: Bilateral cataracts, diabetes, dementia. MEDICATIONS: Hydrocodone, lisinopril. The recording shows a diffuse 5-6 Hz moderate amplitude rhythm. The recording overall is synchronous and symmetric. No epileptiform or seizure activity is noted. There were no hemisphere asymmetries. Hyperventilation is not performed. Photic stimulation was performed without significant posterior driving. At times, diffuse 7 Hz rhythms are seen. IMPRESSION: Mild diffuse theta slowing consistent with a mild diffuse encephalopathy, but no focal abnormalities were noted. No seizure activity was seen. MD KAREEM Sun//[place] , 04:41 PM , 05:03 PM
== END ==
LOC: HEEG 07:29
PROVIDERS: ATTEND Hospitalist
DX: I10 Essential (primary) hypertension (principal)
CPT/HCPCS: 95819